=== PATIENT | female | born 1975 | race Caucasian/White ===

== ENCOUNTER 2016-07-23 12:41 | Emergency (ER) | payer MEDICAID ==
[~2016-07-23] VITALS: Ht 162.6 cm; Wt 88.0 kg
[~2016-07-23 12:41] MED LIST: APRI0.372 PO; B12-1CHW CHEW; CALCTAB11 PO; CLEO1GEL TOPICAL; DOXY100C PO; FLUO40CA PO; SACC1CAP3 PO
[2016-07-23 12:42] VITALS: BP 143/90; PULSE 85; RESP 20; TEMP 98.7; O2SAT 97
--- NOTE | 2016-07-23 12:49 | PD ---
HPI . 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 Patient tells me that she recently found she has precancerous cells and had a colposcopy approximately one month ago. She says that she usually has vaginal discharge, but noticed yesterday that she had an increase in frequency compared to her usual status. She denies any vaginal bleeding. She admits to some dysuria. She denies any high risk sexual behaviors. She no pain except for a sort throat and tells me there is something in the roof of her mouth. She has no complaints of pain. She is accompanied by her daughter. PFSH Past Medical History Cancer: No Cardiovascular Problems: No High Cholesterol: Yes Diabetes: No Diminished Hearing: No Endocrine: No Gastrointestinal Disorders: Yes (crohns diseas) GERD: Yes Genitourinary: No Hepatitis: No Hiatal Hernia: No Hypertension: Yes Immune Disorder: No Musculoskeletal: Yes (ARTHRITIS) Neurologic: No Psychiatric: No Reproductive: No Respiratory: Yes (ASTHMA) Thyroid Disease: No ?: Not LMP: 06/26/16 Tubal Ligation: Yes Past Surgical History Abdominal Surgery: Yes (LAPAROSCOPIC TUBAL LIGATION) Body Medical Devices: N/A Cardiac Surgery: No Ear Surgery: No Endocrine Surgery: No Eye Surgery: No Genitourinary Surgery: No Gynecologic Surgery: Yes (TL) Joint Replacement: No Oral Surgery: Yes (TONSILLECTOMY;FULL UPPER DENTURES) Pacemaker: No Thoracic Surgery: No Tonsillectomy: Yes Other Surgery: Yes (liver biopsy) Social History Alcohol Use: No Tobacco Use: Yes (1/2 ppd) Substance Use: No Allergies-Medications (Allergen,Severity, Reaction): Coded Allergies: Adhesives (Unverified Allergy, Intermediate, RASH, 07/23/16) Reported Meds & Prescriptions Reported Meds & Active Scripts Active Magic Mouthwash Adult Liq (Multi-Ingredient Mouthwash/Gargle) 120 Ml Susp 5 Ml SWISH-SWAL ACHS Each 5mL contains: Nystatin 200,000units, Diphenhydramine 4.25mg, Viscous Lidocaine 10mg, Rushing syrup 0.8 mL Zithromax Z-Jose (Azithromycin) 250 Mg Dspk 250 Mg PO DIRECTED 500 MG (2 tabs) day 1, then 1 tab days 2-5. Fluoxetine (Fluoxetine HCl) 40 Mg Cap 40 Cap PO DAILY Probiotic (Saccharomyces Boulardii) 250 Mg Cap 250 Mg PO BID Doxycycline Hyclate 100 Mg Cap 100 Mg PO BID If severe groin swelling/drainage/redness,please take Doxycycline 100mg BID x 1 week.If any fevers or concerns,please call Dr. Mclean Topical (Clindamycin Phosphate) 1% Gel 1 Applic TOPICAL BID Reported [id number] (Methylcobalamin) 1 Mg Chew 1 Mg CHEW DAILY Apriso (Mesalamine) 0.375 Gm Caper 4 Cap PO DAILY Calcium Magnesium & Zinc (Jhabuie-Bjiozqbgy-Qghf) 334-134-5 Mg Tab 1 Tab PO Review of Systems General / Constitutional: No: Fever Eyes: No: Visual changes HENT: No: Headaches Cardiovascular: No: Chest Pain or Discomfort Respiratory: No: Shortness of Breath Gastrointestinal: No: Abdominal Pain Genitourinary: Positive: Dysuria, Discharge Musculoskeletal: No: Pain Skin: No Rash Neurologic: No: Weakness Psychiatric: No: Depression Endocrine: No: Polydipsia Hematologic/Lymphatic: No: Easy Bruising Physical Exam Narrative GENERAL: AAO x 3, no acute distress, Well-nourished, well-developed patient. SKIN: Warm and dry. No visible rashes or bruising. HEAD: Normocephalic and atraumatic. EYES: No scleral icterus. No injection or drainage. ENT: No nasal drainage noted. Mucous membranes pink. Airway patent. aphthous ulcer is on a roof of the mouth with moderate posterior pharynx erythema NECK: Supple, trachea midline. No JVD. CARDIOVASCULAR: Regular rate and rhythm without murmurs, gallops, or rubs. RESPIRATORY: Breath sounds equal bilaterally. No accessory muscle use. No rhonchi or rales. GASTROINTESTINAL: Abdomen soft, + mild suprapubic tenderness with deep palpation PELVIC: Barby RN present, + cervical motion tenderness, + mild amount of thick white appearing discharge on cervix, no bleeding, no cervical drainage. EXTREMITIES: No cyanosis or edema. BACK: Nontender without obvious deformity. No CVA tenderness. PSYCH: AAO x 3, normal affect. Data Data Last Documented VS Vital Signs Date Time Temp Pulse Resp B/P Pulse Ox O2 Delivery O2 Flow Rate FiO2 07/23/16 13:04 77 16 130/87 97 Room Air 07/23/16 12:42 98.7 Orders Complete Blood Count With Diff (07/23/16 12:58) Basic Metabolic Panel (Bmp) (07/23/16 12:58) Gc And Chlamydia Pcr (07/23/16 12:58) Wet Prep Profile (07/23/16 12:58) Urinalysis - C+S If Indicated (07/23/16 12:58) Labs Laboratory Tests Test 07/23/16 07/23/16 13:18 13:23 White Blood Count 15.0 TH/MM3 Red Blood Count 4.66 MIL/MM3 Hemoglobin 14.3 GM/DL Hematocrit 42.2 % Mean Corpuscular Volume 90.6 FL Mean Corpuscular Hemoglobin 30.7 PG Mean Corpuscular Hemoglobin 33.9 % Concent Red Cell Distribution Width 13.2 % Platelet Count 334 TH/MM3 Mean Platelet Volume 8.0 FL Neutrophils (%) (Auto) 75.9 % Lymphocytes (%) (Auto) 16.2 % Monocytes (%) (Auto) 5.6 % Eosinophils (%) (Auto) 1.9 % Basophils (%) (Auto) 0.4 % Neutrophils # (Auto) 11.4 TH/MM3 Lymphocytes # (Auto) 2.4 TH/MM3 Monocytes # (Auto) 0.8 TH/MM3 Eosinophils # (Auto) 0.3 TH/MM3 Basophils # (Auto) 0.1 TH/MM3 CBC Comment DIFF FINAL Differential Comment Clue Cells (Wet Prep) NONE SEEN Vaginal Trichomonas (Wet Prep) NONE SEEN Vaginal Yeast (Wet Prep) NONE SEEN Sodium Level 138 MEQ/L Potassium Level 4.3 MEQ/L Chloride Level 103 MEQ/L Carbon Dioxide Level 26.0 MEQ/L Anion Gap 9 MEQ/L Blood Urea Nitrogen 6 MG/DL Creatinine 0.78 MG/DL Estimat Glomerular Filtration 82 ML/MIN Rate Random Glucose 81 MG/DL Calcium Level 9.3 MG/DL Urine Color YELLOW Urine Turbidity HAZY Urine pH 5.5 Urine Specific [place] 1.015 Urine Protein TRACE mg/dL Urine Glucose (UA) NEG mg/dL Urine Ketones NEG mg/dL Urine Occult Blood NEG Urine Nitrite NEG Urine Bilirubin NEG Urine Urobilinogen 2.0 MG/DL Urine Leukocyte Esterase MOD Urine RBC LESS THAN 1 /hpf Urine WBC 1 /hpf Urine Squamous Epithelial 5 /hpf Cells Urine Amorphous Sediment OCC Urine Bacteria OCC /hpf Microscopic Urinalysis Comment CULT NOT INDICATED MDM Medical Decision Making Medical Screen Exam Complete: Yes Emergency Medical Condition: Yes Medical Record Reviewed: Yes Differential Diagnosis Aphthous ulcer, vaginitis, bacterial vaginosis, gonorrhea, chlamydia Narrative Course 41 yr old female here with c/o increased vaginal discharge from her baseline discharge level. She was recently dx with precancerous cells and had colpo 1 mt ago. She also c/o throat pain. She has aphthous ulcers on the roof of her mouth along with some moderate posterior pharynx erythema. Vaginal discharge is present, cultures were collected and pending. 1343: No yeast or clue cells seen. No trichomoniasis. WBC elevated. Urine still pending. Laboratory Tests Test 07/23/16 07/23/16 13:18 13:23 White Blood Count 15.0 TH/MM3 Red Blood Count 4.66 MIL/MM3 Hemoglobin 14.3 GM/DL Hematocrit 42.2 % Mean Corpuscular Volume 90.6 FL Mean Corpuscular Hemoglobin 30.7 PG Mean Corpuscular Hemoglobin 33.9 % Concent Red Cell Distribution Width 13.2 % Platelet Count 334 TH/MM3 Mean Platelet Volume 8.0 FL Neutrophils (%) (Auto) 75.9 % Lymphocytes (%) (Auto) 16.2 % Monocytes (%) (Auto) 5.6 % Eosinophils (%) (Auto) 1.9 % Basophils (%) (Auto) 0.4 % Neutrophils # (Auto) 11.4 TH/MM3 Lymphocytes # (Auto) 2.4 TH/MM3 Monocytes # (Auto) 0.8 TH/MM3 Eosinophils # (Auto) 0.3 TH/MM3 Basophils # (Auto) 0.1 TH/MM3 CBC Comment DIFF FINAL Differential Comment Clue Cells (Wet Prep) NONE SEEN Vaginal Trichomonas (Wet Prep) NONE SEEN Vaginal Yeast (Wet Prep) NONE SEEN Sodium Level 138 MEQ/L Potassium Level 4.3 MEQ/L Chloride Level 103 MEQ/L Carbon Dioxide Level 26.0 MEQ/L Anion Gap 9 MEQ/L Blood Urea Nitrogen 6 MG/DL Creatinine 0.78 MG/DL Estimat Glomerular Filtration 82 ML/MIN Rate Random Glucose 81 MG/DL Calcium Level 9.3 MG/DL Urine Color YELLOW Urine Turbidity HAZY Urine pH 5.5 Urine Specific [place] 1.015 Urine Protein TRACE mg/dL Urine Glucose (UA) NEG mg/dL Urine Ketones NEG mg/dL Urine Occult Blood NEG Urine Nitrite NEG Urine Bilirubin NEG Urine Urobilinogen 2.0 MG/DL Urine Leukocyte Esterase MOD Urine RBC LESS THAN 1 /hpf Urine WBC 1 /hpf Urine Squamous Epithelial 5 /hpf Cells Urine Amorphous Sediment OCC Urine Bacteria OCC /hpf Microscopic Urinalysis Comment CULT NOT INDICATED GC PCR still pending. Discussed with patient the results would not be ready in the next few hours. Advised her that we will notify her of any abnormal results. In the meantime I've given her azithromycin to cover for pharyngitis. I've also provided Magic mouthwash for aphthous ulcers. I explained to her that she'll need to follow-up with primary care provider and see meteorological observer for this vaginal discharge. I explained her that oftentimes with precancerous cells and abnormalities of the vagina there may be some discharge present. Patient tells me that her white count is always elevated and this is normal for her, either way I will go ahead and treat her with azithromycin for pharyngitis. Patient verbalized understanding of instructions, questions were answered, and thanked me for their care. I advised them if their condition worsens, please return to the nearest emergency room for further care. Diagnosis Primary Impression: Acute pharyngitis Qualified Code: J02.9 - Acute pharyngitis, unspecified etiology Additional Impressions: Vaginal discharge Aphthous ulcer Patient Instructions: General Instructions Additional Instructions: Please return to emergency department if your symptoms return or worsen. Follow up with your primary care provider. Take medications as prescribed. Med/Other Pt SpecificInfo: Prescription(s) given Scripts Cgbsfwzs-Qbvuomrpvoipobr-Dmtiipkyo Liq (Magic Mouthwash Adult Liq)120 Ml Susp5 Ml SWISH-SWAL ACHS #120 ML Ref 0 Each 5mL contains: Nystatin 200,000units, Diphenhydramine 4.25mg, Viscous Lidocaine 10mg, Rushing syrup 0.8 mL Prov:Renard Tejada MD 07/23/16 Azithromycin (Zithromax Z-Jose)250 Mg [id number] Mg PO DIRECTED #1 DSPK 500 MG (2 tabs) day 1, then 1 tab days 2-5. Prov:Renard Tejada MD 07/23/16 Disposition: 01 DISCHARGE HOME Condition: Stable Geri Zambrano July 23, 2016 12:48
[2016-07-23 13:04] VITALS: BP 130/87; PULSE 77; RESP 16; O2SAT 97
[2016-07-23 13:29] LABS: AUTOMATED NEUTROPHIL # 11.4 TH/MM3 (1.8-7.7); BASOPHIL # 0.1 TH/MM3 (0-0.2); BASOPHIL % 0.4 % (0.0-2.0); EOSINOPHIL # 0.3 TH/MM3 (0-0.4); EOSINOPHIL % 1.9 % (0.0-4.0); HEMATOCRIT 42.2 % (35.0-46.0); HEMO FLAGS DIFF FINAL; LYMPH % 16.2 % (9.0-44.0); LYMPHOCYTE # 2.4 TH/MM3 (1.0-4.8); MEAN CELL VOLUME 90.6 FL (80.0-100.0); MEAN CORPUSCULAR HEMOGLOBIN 30.7 PG (27.0-34.0); MEAN CORPUSCULAR HGB CONC 33.9 % (32.0-36.0); MONO % 5.6 % (0.0-8.0); NEUT % 75.9 % (16.0-70.0); PLATELET COUNT 334 TH/MM3 (150-450); RED BLOOD COUNT 4.66 MIL/MM3 (4.00-5.30); RED CELL DISTRIBUTION WIDTH 13.2 % (11.6-17.2)
[2016-07-23 13:46] LABS: BACTERIA, URINE OCC /hpf; BLOOD, URINE NEG (NEG); GLUCOSE,URINE NEG (NEG); KETONE, URINE NEG (NEG); NITRITE,URINE NEG (NEG); PH, URINE 5.5 (5.0-8.5); SQUAMOUS EPITHELIAL CELL URINE 5 /hpf (0-5); URINE COLOR YELLOW (YELLW/STRAW)
[2016-07-23 13:48] LABS: COMMENT (UR) CULT NOT INDICATED; CULTURE IF INDICATED CULT NOT INDICATED
[2016-07-23 13:51] LABS: POTASSIUM 4.3 MEQ/L (3.5-5.1)
[2016-07-23] MEDS ORDERED: MAGICADU2 SWISH-SWAL (14:00)
[2016-07-23] MEDS ORDERED: ZITHTAB PO (14:00)
[2016-07-23 15:06] LABS: CHLAMYDIA PCR NOT DETECTED (NOT DETECT); NEISSERIA PCR NOT DETECTED (NOT DETECT)
== END 2016-07-23 14:39 | disposition home or self-care (01) ==
LOC: NEPD 12:41
DX: J02.9 Acute pharyngitis, unspecified (principal); N89.8 Other specified noninflammatory disorders of vagina; K12.0 Recurrent oral aphthae; F17.200 Nicotine dependence, unspecified, uncomplicated
CPT/HCPCS: 80048; 81001; 85025; 87210; 87491; 87591; 99283

== ENCOUNTER 2016-08-05 19:26 | Observation (INO) | payer MEDICAID, OTHER ==
[~2016-08-05] VITALS: Ht 162.6 cm; Wt 88.0 kg
[~2016-08-05 19:26] MED LIST changes: +MAGICADU2 SWISH-SWAL; +ZITHTAB PO
[2016-08-05 19:28] VITALS: BP 126/83; PULSE 84; RESP 16; TEMP 98.5; O2SAT 98
[2016-08-05] MEDS ORDERED: PANT20TA2 PO (19:46)
[2016-08-05] MEDS ORDERED: FERR200T PO (19:46)
[2016-08-05] MEDS ORDERED: SODIUM CHLORID 0.9% 500 ML INJ 500 ML IV ONE (20:00)
[2016-08-05] MEDS ORDERED: SODIUM CHLORIDE 0.9% FLUSH 10 ML FLUSH IVF PRN (20:00)
[2016-08-05] MEDS ORDERED: ASPIRIN 81 MG CHEW TAB PO ONE (20:00)
[2016-08-05 20:04] VITALS: BP 114/69; O2SAT 98
--- NOTE | 2016-08-05 20:24 | PD ---
HPI Chief Complaint: Chest Pain Time Seen by Provider: 19:45 Travel History International Travel<30 days: No Contact w/Intl Traveler<30days: No Traveled to known affect area: No History of Present Illness HPI 41-year-old female with recent diagnosis of cervical cancer presents to the ED for evaluation of "a couple weeks" history of intermittent chest pain. Onset at rest. Described as a tightness. Gradual onset, lasting up to 30 minutes before resolving spontaneously. Patient endorses accompanying shortness of breath. She states the pain moved from the upper left chest to the lower left chest since onset. She fevers, chills, denies radiation of the pain, palpitations, diaphoresis, abdominal pain, nausea, vomiting. Endorses urinary urgency. Denies back pain. PFSH Past Medical History Depression: Yes Cancer: Yes (CERVICAL CANCER) Cardiovascular Problems: No High Cholesterol: Yes Diabetes: No Diminished Hearing: No Endocrine: No Gastrointestinal Disorders: Yes (CHROHNS, GALLBLADDER PROBLEMS;GERD) GERD: Yes Genitourinary: No Hepatitis: No Hiatal Hernia: No Hypertension: Yes Immune Disorder: No Medical other: Yes (FATTY LIVER) Musculoskeletal: Yes (ARTHRITIS) Neurologic: No Psychiatric: No Reproductive: No Respiratory: Yes (ASTHMA) Thyroid Disease: No ?: Not Tubal Ligation: Yes Past Surgical History Abdominal Surgery: Yes (LAPAROSCOPIC TUBAL LIGATION) Body Medical Devices: N/A Cardiac Surgery: No Ear Surgery: No Endocrine Surgery: No Eye Surgery: No Genitourinary Surgery: No Gynecologic Surgery: Yes (TL) Joint Replacement: No Neurologic Surgery: No Oral Surgery: Yes (TONSILLECTOMY;FULL UPPER DENTURES) Pacemaker: No Thoracic Surgery: No Tonsillectomy: Yes Other Surgery: Yes (liver biopsy / CERVIX BIOPSY) Social History Alcohol Use: No Tobacco Use: Yes (1/2 ppd) Substance Use: No Allergies-Medications (Allergen,Severity, Reaction): Coded Allergies: Adhesives (Unverified Allergy, Intermediate, RASH, 08/05/16) Reported Meds & Prescriptions Reported Meds & Active Scripts Active Fluoxetine (Fluoxetine HCl) 40 Mg Cap 40 Cap PO DAILY Reported Feosol (Ferrous Sulfate) Unknown Strength Tab Unknown Dose PO BIDPC Pantoprazole (Pantoprazole Sodium) 20 Mg Tab 20 Mg PO DAILY Apriso (Mesalamine) 0.375 Gm Caper 4 Cap PO DAILY Review of Systems Except as stated in HPI: all other systems reviewed are Neg Physical Exam Narrative GENERAL: Well-nourished, well-developed obese white female in no acute distress.. SKIN: Focused skin assessment warm/dry. HEAD: Normocephalic. EYES: No scleral icterus. No injection or drainage. NECK: Supple, trachea midline. No JVD or lymphadenopathy. CARDIOVASCULAR: Regular rate and rhythm without murmurs, gallops, or rubs. CHEST: No deformity or crepitus. Slight tenderness to palpation in the Left anterolateral rib cage. No retractions or use of accessory muscles. RESPIRATORY: Breath sounds clear and equal bilaterally. No accessory muscle use. GASTROINTESTINAL: Abdomen soft, non-tender, nondistended. Active bowel sounds. MUSCULOSKELETAL: No cyanosis, or edema. BACK: Nontender without obvious deformity. No CVA tenderness. Data Data Last Documented VS Vital Signs Date Time Temp Pulse Resp B/P Pulse Ox O2 Delivery O2 Flow Rate FiO2 08/05/16 20:04 114/69 08/05/16 20:04 98 Room Air 08/05/16 19:28 98.5 84 16 Orders Electrocardiogram (08/05/16 19:47) Basic Metabolic Panel (Bmp) (08/05/16 19:47) Ckmb (Isoenzyme) Profile (08/05/16 19:47) Complete Blood Count With Diff (08/05/16 19:47) Magnesium (Mg) (08/05/16 19:47) Prothrombin Time / Inr (Pt) (08/05/16 19:47) Act Partial Throm Time (Ptt) (08/05/16 19:47) Troponin I (08/05/16 19:47) Chest, Single Ap (08/05/16 19:47) Ecg Monitoring (08/05/16 19:47) Bilateral Bp Monitoring (08/05/16 19:47) Iv Access Insert/Monitor (08/05/16 19:47) Oximetry (08/05/16 19:47) Aspirin Chew (Aspirin Chew) (08/05/16 20:00) Sodium Chloride 0.9% Flush (Ns Flush) (08/05/16 20:00) Sodium Chlorid 0.9% 500 Ml Inj (Ns 500 M (08/05/16 20:00) Ed Urine Pregnancytest Poc (08/05/16 19:47) Lipase (08/05/16 19:47) Urinalysis - C+S If Indicated (08/05/16 21:29) Activity Bed Rest With Brp (08/05/16 21:51) Vital Signs (Adult) Q4H (08/05/16 21:51) Cardiac Rhythm .As Directed (08/05/16 21:51) Notify Dr: Other .PRN (08/05/16 21:51) Notify Dr. Parameters (08/05/16:51) Ckmb (Isoenzyme) Profile (08/05/16 21:51) Ckmb (Isoenzyme) Profile (08/06/16 00:51) Troponin I (08/05/16 21:51) Troponin I (08/06/16 00:51) Electrocardiogram (08/05/16 21:51) Electrocardiogram (08/06/16 00:51) ^ Obtain (08/05/16 21:51) Sodium Chloride 0.9% Flush (Ns Flush) (08/05/16 22:00) Sodium Chloride 0.9% Flush (Ns Flush) (08/06/16 09:00) Research Hydraulic Engineer / Telemetry [id number] (08/05/16 21:51) Admit Order (Ed Use Only) (08/05/16 21:51) Labs Laboratory Tests Test 08/05/16 08/05/16 20:30 21:39 White Blood Count 13.3 TH/MM3 Red Blood Count 4.26 MIL/MM3 Hemoglobin 12.8 GM/DL Hematocrit 39.2 % Mean Corpuscular Volume 92.0 FL Mean Corpuscular Hemoglobin 30.2 PG Mean Corpuscular Hemoglobin 32.8 % Concent Red Cell Distribution Width 13.3 % Platelet Count 328 TH/MM3 Mean Platelet Volume 8.4 FL Neutrophils (%) (Auto) 62.4 % Lymphocytes (%) (Auto) 29.3 % Monocytes (%) (Auto) 5.9 % Eosinophils (%) (Auto) 2.1 % Basophils (%) (Auto) 0.3 % Neutrophils # (Auto) 8.3 TH/MM3 Lymphocytes # (Auto) 3.9 TH/MM3 Monocytes # (Auto) 0.8 TH/MM3 Eosinophils # (Auto) 0.3 TH/MM3 Basophils # (Auto) 0.0 TH/MM3 CBC Comment DIFF FINAL Differential Comment Prothrombin Time 9.5 SEC Prothromb Time International 0.9 RATIO Ratio Activated Partial 27.1 SEC Thromboplast Time Sodium Level 141 MEQ/L Potassium Level 3.7 MEQ/L Chloride Level 104 MEQ/L Carbon Dioxide Level 25.9 MEQ/L Anion Gap 11 MEQ/L Blood Urea Nitrogen 5 MG/DL Creatinine 0.68 MG/DL Estimat Glomerular Filtration 96 ML/MIN Rate Random Glucose 73 MG/DL Calcium Level 8.8 MG/DL Magnesium Level 2.2 MG/DL Total Creatine Kinase 94 U/L Troponin I LESS THAN 0.02 NG/ML Lipase 122 U/L Urine Color YELLOW Urine Turbidity HAZY Urine pH 6.0 Urine Specific [place] 1.018 Urine Protein TRACE mg/dL Urine Glucose (UA) NEG mg/dL Urine Ketones NEG mg/dL Urine Occult Blood NEG Urine Nitrite NEG Urine Bilirubin NEG Urine Urobilinogen 4.0 MG/DL Urine Leukocyte Esterase TRACE Urine RBC 1 /hpf Urine WBC 4 /hpf Urine Squamous Epithelial 6 /hpf Cells Urine Mucus FEW /lpf Microscopic Urinalysis Comment CULT NOT INDICATED MDM Medical Decision Making Medical Screen Exam Complete: Yes Emergency Medical Condition: Yes Differential Diagnosis chest pain versus costochondritis versus ACS versus cholelithiasis versus pancreatitis versus UTI versus other Narrative Course 41-year-old female presents to the ED for evaluation of "a couple weeks" history of intermittent chest pain. Onset at rest. Described as a tightness. Gradual onset, lasting up to 30 minutes before resolving spontaneously. Patient endorses accompanying shortness of breath. She states the pain moved from the upper left chest to the lower left chest since onset. She fevers, chills, denies radiation of the pain, palpitations, diaphoresis, abdominal pain , nausea, vomiting. Endorses urinary urgency. Denies back pain. Patient afebrile, heart rate 84, BP 126/83 on presentation. Physical exam revealed a nontoxic-appearing white female in no acute distress. There is point tenderness over the anterolateral left chest but the physical exam is otherwise unremarkable. She was administered aspirin by mouth. CBC: WBC 13.3. Hemoglobin 12.8 Coags: INR 0.9. BMP: Unremarkable. Lipase: 112. UA: No culture indicated. Cardiac enzymes negative 1. CXR: Lungs clear per radiology read. EKG rate 76, sinus rhythm. MA interval 158, QRS 80, QTC 418 ms[address] Normal axis. No ST-T changes. Reviewed by I discussed the results of the workup with the patient. I recommended observation in the chest pain center for further evaluation. Patient is agreeable to this plan. Please see [facility] notes for disposition. Va Cid Aug 05, 2016 20:24
--- NOTE | 2016-08-05 20:58 | RADRPT ---
EXAM DATE/TIME: 08/05/2016 20:14 [place] COMPARISON: CHEST SINGLE AP, June 22, 2015, 16:48. INDICATIONS : Chest pain. MEDICAL HISTORY : None. SURGICAL HISTORY : None. ENCOUNTER: Initial ACUITY: 1 day PAIN SCORE: 8/10 LOCATION: Bilateral chest FINDINGS: A single view of the chest demonstrates the lungs to be symmetrically aerated without evidence of mas s, infiltrate or effusion. The cardiomediastinal contours are unremarkable. Osseous structures are intact. CONCLUSION: The lungs are clear. eBnjamin Jamison MD on August 05, 2016 at 20:56 Board Certified Radiologist. This report was verified electronically.
[2016-08-05 20:59] LABS: AUTOMATED NEUTROPHIL # 8.3 TH/MM3 (1.8-7.7); BASOPHIL % 0.3 % (0.0-2.0); EOSINOPHIL # 0.3 TH/MM3 (0-0.4); EOSINOPHIL % 2.1 % (0.0-4.0); HEMATOCRIT 39.2 % (35.0-46.0); HEMO FLAGS DIFF FINAL; LYMPH % 29.3 % (9.0-44.0); LYMPHOCYTE # 3.9 TH/MM3 (1.0-4.8); MEAN CORPUSCULAR HEMOGLOBIN 30.2 PG (27.0-34.0); MEAN CORPUSCULAR HGB CONC 32.8 % (32.0-36.0); MONO % 5.9 % (0.0-8.0); NEUT % 62.4 % (16.0-70.0); PLATELET COUNT 328 TH/MM3 (150-450); RED BLOOD COUNT 4.26 MIL/MM3 (4.00-5.30); RED CELL DISTRIBUTION WIDTH 13.3 % (11.6-17.2); WHITE BLOOD COUNT 13.3 TH/MM3 (4.0-11.0)
[2016-08-05 21:21] LABS: APTT (PATIENT) 27.1 SEC (24.3-30.1); INTERNATIONAL NORMALIZED RATIO 0.9 RATIO; PROTHROMBIN TIME - PATIENT 9.5 SEC (9.8-11.6)
[2016-08-05 21:30] LABS: ANION GAP 11 MEQ/L (5-15); BICARBONATE 25.9 MEQ/L (21.0-32.0); BLOOD UREA NITROGEN 5 MG/DL (7-18); CHLORIDE 104 MEQ/L (98-107); GLOMERULAR FILTRATION RATE 96 ML/MIN (>89); MAGNESIUM 2.2 MG/DL (1.5-2.5); POTASSIUM 3.7 MEQ/L (3.5-5.1); SODIUM (NA) 141 MEQ/L (136-145)
[2016-08-05 21:39] LABS: CREATINE KINASE 94 U/L (26-192)
[2016-08-05 21:54] LABS: BLOOD, URINE NEG (NEG); COMMENT (UR) CULT NOT INDICATED; CULTURE IF INDICATED CULT NOT INDICATED; GLUCOSE,URINE NEG (NEG); KETONE, URINE NEG (NEG); MUCUS URINE FEW /lpf (OCC); NITRITE,URINE NEG (NEG); SQUAMOUS EPITHELIAL CELL URINE 6 /hpf (0-5); URINE COLOR YELLOW (YELLW/STRAW)
[2016-08-05] MEDS ORDERED: SODIUM CHLORIDE 0.9% FLUSH 10 ML FLUSH IV FLUSH PRN (22:00)
[2016-08-05 22:51] VITALS: BP 129/74; PULSE 75; RESP 18; TEMP 97.8; O2SAT 98
[2016-08-05 23:37] LABS: CREATINE KINASE 85 U/L (26-192)
[2016-08-06] VITALS (7 sets, daily range): BP systolic 71–123; BP diastolic 41–69; PULSE 53–70; RESP 16–18; TEMP 97.6–97.8; O2SAT 95–96
[2016-08-06 03:23] LABS: CREATINE KINASE 78 U/L (26-192)
[2016-08-06] MEDS ORDERED: SODIUM CHLORIDE 0.9% FLUSH 10 ML FLUSH IV FLUSH SCH (09:00)
--- NOTE | 2016-08-06 11:13 | HHI.HP ---
HPI Primary Care Physician Derek Batista MD Chief Complaint Chest pain History of Present Illness This is a 41-year-old female that presents to ED to evaluate for a discomfort in her chest. She tried a sharp chest pain has been intermittent for couple days. Last 1 or 2 minutes at a time. It hurt to take in a deep breath yesterday but is no longer there today. Denies recent illness. Denies fevers or chills. Occasionally short of breath. No nausea or diaphoresis. Denies . Review of Systems General: Patient denies fevers, chills recent, and recent travel HEENT: Patient denies headache, sore throat, difficulty swallowing. Cardiovascular: Has the chest discomfort as mentioned above. Denies sensation of heart beating rapidly or irregularly. No syncope. Denies diaphoresis. Respiratory: Occasional shortness of breath. Denies inspirational chest discomfort. Denies coughing wheezing or hemoptysis. GI: Patient denies nausea, vomiting, diarrhea, abdominal pain, bloody stools. Musculoskeletal: Patient denies joint pain or edema. Denies calf pain or edema. Neurovascular: Patient denies numbness, tingling, weakness in extremities. Denies headache. Endocrine: Denies polyuria and polydipsia. Hematologic: Denies easy bruising. Skin: Denies rash or itching. Past Family Social History Allergies: Coded Allergies: Adhesives (Unverified Allergy, Intermediate, RASH, 08/05/16) Past Medical History Iron deficient anemia, Crohn's disease, GERD, and tobacco abuse. Denies diabetes, hyperlipidemia, hypertension, and known CAD. Past Surgical History Tubal ligation, tonsillectomy. Reported Medications Reported Meds & Active Scripts Active Fluoxetine (Fluoxetine HCl) 40 Mg Cap 40 Cap PO DAILY Reported Feosol (Ferrous Sulfate) Unknown Strength Tab Unknown Dose PO BIDPC Pantoprazole (Pantoprazole Sodium) 20 Mg Tab 20 Mg PO DAILY Apriso (Mesalamine) 0.375 Gm Caper 4 Cap PO DAILY Active Ordered Medications Current Medications Medications (Trade) Dose Ordered Sig/Elizabeth Route Start Time Stop Time Status Last Admin (NS Flush) 2 ml UNSCH PRN IVF 08/05/16 20:00 (NS Flush) 2 ml UNSCH PRN IV FLUSH 08/05/16 22:00 (NS Flush) 2 ml BID IV FLUSH 08/06/16 09:00 08/06/16 08:32 Family History She states that her mother have CAD on center in her late 40s. She believes her father has some heart issues but is not really aware of specifics. Social History Patient has been smoking about a half pack of cigarettes daily for a few months but prior that she smoked a pack of cigarettes daily for more than 25 years. Denies alcohol or illicit drug use. Physical Exam Vital Signs Vital Signs Date Time Temp Pulse Resp B/P Pulse Ox O2 Delivery O2 Flow Rate FiO2 08/06/16 08:00 56 08/06/16 07:51 111/69 08/06/16 07:41 97.6 61 16 71/41 96 08/06/16 04:13 60 08/06/16 03:14 97.8 53 16 123/67 95 08/06/16 00:00 70 08/05/16 22:51 97.8 75 18 129/74 98 08/05/16 20:04 114/69 08/05/16 20:04 98 Room Air 08/05/16 19:28 98.5 84 16 126/83 98 Nasal Cannula Physical Exam GENERAL: This is a well-nourished, well-developed patient, in no apparent distress. Patient speaks in clear complete sentences. Patient is pleasant. HEENT: Head is atraumatic and normocephalic. Neck is supple without lymphadenopathy and trachea is midline. No JVD or carotid bruits. CARDIOVASCULAR: Regular rate and rhythm without murmurs, gallops, or rubs. RESPIRATORY: Clear to auscultation. Breath sounds equal bilaterally. No wheezes , rales, or rhonchi. Chest wall is tender reproducing the discomfort she has been having.. No use of accessory muscles. GASTROINTESTINAL: Abdomen is nontender, nondistended. Abdomen soft. No obvious pulsatile mass or bruit. No CVA tenderness. Strong femoral pulses bilaterally. Normal bowel sounds in all quadrants. MUSCULOSKELETAL: Patient is moving upper and lower extremities freely. No calf tenderness or edema, no Homans sign. Strong pulses in upper and lower extremities. NEUROLOGICAL: Patient is alert and oriented. Cranial nerves 2-12 are grossly intact. No focal deficits and speech is clear. SKIN: No rash and turgor is normal. Laboratory Laboratory Tests Test 08/05/16 08/05/16 08/05/16 08/06/16 20:30 21:39 22:45 02:30 White Blood Count 13.3 Red Blood Count 4.26 Hemoglobin 12.8 Hematocrit 39.2 Mean Corpuscular Volume 92.0 Mean Corpuscular Hemoglobin 30.2 Mean Corpuscular Hemoglobin 32.8 Concent Red Cell Distribution Width 13.3 Platelet Count 328 Mean Platelet Volume 8.4 Neutrophils (%) (Auto) 62.4 Lymphocytes (%) (Auto) 29.3 Monocytes (%) (Auto) 5.9 Eosinophils (%) (Auto) 2.1 Basophils (%) (Auto) 0.3 Neutrophils # (Auto) 8.3 Lymphocytes # (Auto) 3.9 Monocytes # (Auto) 0.8 Eosinophils # (Auto) 0.3 Basophils # (Auto) 0.0 CBC Comment DIFF FINAL Differential Comment Prothrombin Time 9.5 Prothromb Time International 0.9 Ratio Activated Partial 27.1 Thromboplast Time Sodium Level 141 Potassium Level 3.7 Chloride Level 104 Carbon Dioxide Level 25.9 Anion Gap 11 Blood Urea Nitrogen 5 Creatinine 0.68 Estimat Glomerular Filtration 96 Rate Random Glucose 73 Calcium Level 8.8 Magnesium Level 2.2 Total Creatine Kinase 94 85 78 Troponin I LESS THAN 0.02 LESS THAN 0.02 LESS THAN 0.02 Lipase 122 Urine Color YELLOW Urine Turbidity HAZY Urine pH 6.0 Urine Specific [place] 1.018 Urine Protein TRACE Urine Glucose (UA) NEG Urine Ketones NEG Urine Occult Blood NEG Urine Nitrite NEG Urine Bilirubin NEG Urine Urobilinogen 4.0 Urine Leukocyte Esterase TRACE Urine RBC 1 Urine WBC 4 Urine Squamous Epithelial 6 Cells Urine Mucus FEW Microscopic Urinalysis Comment CULT NOT INDICATED Test 08/06/16 09:06 D-Dimer Quantitative (PE/DVT) 0.39 Result Diagram: 08/05/16202908/05/162029 Imaging Last 48 hours Impressions Chest X-Ray 08/05/161946 Signed Impressions: Service Date/Time: Friday, August 05, 2016 20:14 - CONCLUSION: The lungs are clear. Benjamin Jamison MD Course EKGs have sinus bradycardia to sinus arrhythmia without significant ST segment depressions or elevations. Assessment and Plan Assessment and Plan * Chest pain: Patient has had serial cardiac enzymes and EKGs for ruling out purposes. She has been seen by Dr. Nathaniel Colbert of cardiology in the chest pain center. She will undergo a Lexiscan. She will be discharged home with instructions to follow-up with primary care physician if her Lexiscan was nonischemic. * GERD: Continue her medication. * Tobacco abuse: Patient has been counseled on importance of smoking cessation. Patient is stable at this time. She is agreeable to this plan. Zaheer Calderon Aug 06, 2016 11:13
[2016-08-06] MEDS ORDERED: REGADENOSON INJ 0.4 MG/5 ML SYR ONE (12:12)
--- NOTE | 2016-08-06 14:27 | RADRPT ---
EXAM DATE/TIME: 08/06/2016 11:41 CORRECTION Corrected on: August 14, 2016; Added pain scale [place] COMPARISON: No previous studies available for comparison. INDICATIONS : Angina. DOSE: 25.8 mCi Tc99m Myoview at stress. 8.2 mCi Tc99m Myoview at rest. 0.4 mg Lexiscan STRESS SYMPTOMS: Lightheaded. EJECTION FRACTION: 65% MEDICAL HISTORY : Hypertension. Hypercholesterolemia. SURGICAL HISTORY : Tubal ligation ENCOUNTER: Initial ACUITY: 3 weeks PAIN SCALE: 0/10 LOCATION: chest TECHNIQUE: The patient underwent pharmacologic stress with infusion of prescribed dose. Continuous ECG tracing was monitored during stress. Gated SPECT imaging was performed after stress and conventional SPECT i maging was performed at rest. The examination was performed on a SPECT/CT scanner, both attenuation and non-corrected datasets were reviewed. FINDINGS: DISTRIBUTION: The maximum perfused segment at stress is in the inferior wall. PERFUSION STUDY: The pattern of perfusion at stress is within normal limits. GATED STUDY: There is intact wall motion and thickening without hypokinetic or dyskinetic segments. CONCLUSION: 1. No reversible perfusion defect to suggest stress-induced myocardial ischemia identified. RISK CATEGORY: Low (<1% Annual Mortality Rate) Akhil Diehl MD on August 06, 2016 at 14:25 Board Certified Radiologist. This report was verified electronically.
--- NOTE | 2016-08-06 14:50 | HHI.DCPOC ---
Discharge Care Plan Diagnosis: (1) Chest pain (2) Tobacco abuse Goals to Promote Your Health * To prevent worsening of your condition and complications * To maintain your health at the optimal level Directions to Meet Your Goals Take your medications as prescribed Follow your dietary instruction Follow activity as directed Keep your appointments as scheduled Take your immunizations and boosters as scheduled If your symptoms worsen call your PCP, if no PCP go to Urgent Care Center or Emergency Room Smoking is Dangerous to Your Health. Avoid second hand smoke Call the 24-hour hour crisis hotline for domestic abuse at Zaheer Calderon Aug 06, 2016 14:50
--- NOTE | 2016-08-06 15:32 | EKG ---
Date Performed: 08/06/2016 Time Performed: 02:50:43 PTAGE: 41 years EKG: SINUS BRADYCARDIA WITH SINUS ARRHYTHMIA BORDERLINE ECG PREVIOUS TRACING : 08/05/2016 23.36 Since previous tracing, no significant change noted DOCTOR: Nathaniel Colbert Interpretating Date/Time 08/06/2016 15:31:03
--- NOTE | 2016-08-06 15:33 | EKG ---
Date Performed: 08/05/2016 Time Performed: 23:36:52 PTAGE: 41 years EKG: Sinus rhythm NORMAL ECG PREVIOUS TRACING : 08/05/2016 22.08 Since previous tracing, no significant change noted DOCTOR: Nathaniel Colbert Interpretating Date/Time 08/06/2016 15:31:59
--- NOTE | 2016-08-06 15:34 | EKG ---
Date Performed: 08/05/2016 Time Performed: 22:08:59 PTAGE: 41 years EKG: Sinus rhythm WITH SINUS ARRHYTHMIA NORMAL ECG PREVIOUS TRACING : 08/05/2016 19.40 Since previous tracing, no significant change noted DOCTOR: Nathaniel Colbert Interpretating Date/Time 08/06/2016 15:32:56
--- NOTE | 2016-08-06 15:35 | EKG ---
Date Performed: 08/05/2016 Time Performed: 19:40:17 PTAGE: 41 years EKG: Sinus rhythm NORMAL ECG PREVIOUS TRACING : 06/22/2015 16.19 Since previous tracing, no significant change noted DOCTOR: Nathaniel Colbert Interpretating Date/Time 08/06/2016 15:33:14
--- NOTE | 2016-08-06 15:36 | TR ---
Date Performed: 08/06/2016 Time Performed: 12:21:22 DOCTOR: Nathaniel Colbert DRUG LIST: CLINICAL HISTORY: REASON FOR TEST: REASON FOR ENDING: OBSERVATION: CONCLUSION: Lexiscan stress test was performed under standard four minute protocol. Radionuclid e was injected one minute prior to ending the test. No electrocardiographic abormalities were present to suggest ischemia. Nuclear imaging and interpretation are pending. COMMENTS:
== END 2016-08-06 15:37 | disposition home or self-care (01) ==
LOC: NEPE 19:26 → NEDA 21:54 → NEPHCDU 22:48
PROVIDERS: ADMIT Family Medicine; ATTEND Family Medicine
DX: R07.89 Other chest pain (principal); R06.02 Shortness of breath; R00.1 Bradycardia, unspecified; F32.9 Major depressive disorder, single episode, unspecified; C53.9 Malignant neoplasm of cervix uteri, unspecified; I10 Essential (primary) hypertension; K21.9 Gastro-esophageal reflux disease without esophagitis; J45.909 Unspecified asthma, uncomplicated; F17.210 Nicotine dependence, cigarettes, uncomplicated; K50.90 Crohn's disease, unspecified, without complications; E78.00 Pure hypercholesterolemia, unspecified; M19.90 Unspecified osteoarthritis, unspecified site
CPT/HCPCS: 71010; 78452; 80048; 81001; 82550; 83690; 83735; 84484; 84703; 85025; 85379; 85610; 85730; 93005; 93017; 96360; 99285; A9502; G0378; J2785; J7040

== ENCOUNTER → 2016-08-23 | Outpatient (CLI) | payer OTHER ==
[~2016-08-23] MED LIST changes: -B12-1CHW CHEW; -CALCTAB11 PO; -CLEO1GEL TOPICAL; -DOXY100C PO; +FERR200T PO; -MAGICADU2 SWISH-SWAL; +PANT20TA2 PO; -SACC1CAP3 PO; -ZITHTAB PO
[2016-08-23 10:49] LABS: AUTOMATED NEUTROPHIL # 10.5 TH/MM3 (1.8-7.7); BASOPHIL % 0.3 % (0.0-2.0); EOSINOPHIL # 0.2 TH/MM3 (0-0.4); EOSINOPHIL % 1.7 % (0.0-4.0); HEMATOCRIT 41.3 % (35.0-46.0); HEMO FLAGS DIFF FINAL; LYMPH % 15.8 % (9.0-44.0); LYMPHOCYTE # 2.2 TH/MM3 (1.0-4.8); MEAN CELL VOLUME 91.7 FL (80.0-100.0); MEAN CORPUSCULAR HEMOGLOBIN 30.1 PG (27.0-34.0); MEAN CORPUSCULAR HGB CONC 32.8 % (32.0-36.0); MONO % 5.7 % (0.0-8.0); NEUT % 76.5 % (16.0-70.0); PLATELET COUNT 313 TH/MM3 (150-450); RED CELL DISTRIBUTION WIDTH 13.5 % (11.6-17.2); WHITE BLOOD COUNT 13.7 TH/MM3 (4.0-11.0)
[2016-08-23 10:58] LABS: APTT (PATIENT) 28.5 SEC (24.3-30.1); INTERNATIONAL NORMALIZED RATIO 0.9 RATIO; PROTHROMBIN TIME - PATIENT 10.2 SEC (9.8-11.6)
[2016-08-23 11:18] LABS: ANION GAP 5 MEQ/L (5-15); AST (GOT) 19 U/L (15-37); BICARBONATE 28.8 MEQ/L (21.0-32.0); BLOOD UREA NITROGEN 6 MG/DL (7-18); CHLORIDE 103 MEQ/L (98-107); GLOMERULAR FILTRATION RATE 85 ML/MIN (>89); GLUCOSE,FASTING 92 MG/DL (74-99); POTASSIUM 3.9 MEQ/L (3.5-5.1); SODIUM (NA) 137 MEQ/L (136-145)
[2016-08-23 11:19] LABS: ALT (GPT) 32 U/L (10-53)
[2016-08-23 11:23] LABS: ALKALINE PHOSPHATASE 36 U/L (45-117); TOTAL BILIRUBIN ADULT 0.5 MG/DL (0.2-1.0)
[2016-08-23 11:26] LABS: BHCG SCREEN QUALITATIVE LESS THAN 1 MIU/ML (0-5)
== END ==
LOC: CPRE 10:02
PROVIDERS: ATTEND Obstetrics & Gynecology Gynecologic Oncology
DX: Z01.812 Encounter for preprocedural laboratory examination (principal); N87.1 Moderate cervical dysplasia
CPT/HCPCS: 36415; 80053; 84703; 85025; 85610; 85730

== ENCOUNTER → 2016-09-06 | Day surgery (SDC) | payer MEDICAID, OTHER ==
[~2016-09-06] VITALS: Ht 165.1 cm; Wt 87.0 kg
[~2016-09-06] MED LIST changes: +CHLORHEXIDINE GLUCONATE 2 % 1 PACK (2 CLOTHS) TOPICAL PRN; +DEXAMETHASONE SOD PHOS 4 MG/ML VIAL ONE; +DO NOT ADM ANY ANTICOAGULANT DRUGS PRN; +ESTROGENS CONJUGATED VAG CREA 15 APPL/30 GM TUBE ONE; +FAMOTIDINE 20 MG/2 ML VIAL ONE; +FERRIC SUBSULFATE 8 ML TOP SOLN TOPICAL ONE; +INSULIN HUMAN REGULAR 1,000 UNITS/10 ML VIAL SQ PRN; +KETOROLAC TROMETHAMINE 30 MG/ML (IVP) VIAL ONE; +KETOROLAC TROMETHAMINE 60 MG/2 ML (IM) VIAL IM ONE; +LACTATED RINGER'S 1000 ML INJ 1,000 ML IV ONE; +LACTATED RINGER'S 1000 ML IV PRN; +LIDOCAINE 1%/EPINEPHrine 1:100,000 SOLN 20 ML VIAL ONE; +METOPROLOL TARTRATE 25 MG TAB PO PRN; +MIDAZOLAM HCL 2 MG/2 ML VIAL ONE; +ONDANSETRON HCL 4 MG/2 ML VIAL IV PUSH ONE; +POVIDONE IODINE 5% (ANTISEPSIS KIT) 4 APPLICATIONS EACH NARE PRN; +PROPOFOL 200 MG/20 ML AMP IV ONE; +SODIUM CHLORID 0.9% 500 ML IV PRN; +VASOPRESSIN INJ 20 UNITS/ML VIAL ONE; +ceFAZolin INJ 1,000 MG VIAL IV ONE
[2016-09-06 05:58] VITALS: BP 105/69; PULSE 68; RESP 18; TEMP 97.4; O2SAT 96
[2016-09-06 09:38] VITALS: BP 118/80; PULSE 68; RESP 16; TEMP 97.1; O2SAT 99
--- NOTE | 2016-09-06 14:34 | MP ---
cc: HELENA SPENCE MD, KELLY L. MD DATE OF SURGERY: 09/06/2016 PREOPERATIVE DIAGNOSIS Cervical carcinoma in situ with endocervical extension, possible microinvasion. 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 PROCEDURE Examination under anesthesia, cold knife conization of the cervix, fractional dilation and curettage (endocervical and endometrial curettings). SURGEON Anna Callahan MD [employer] RECRUITER [place] optometric assistant. ANESTHESIA Laryngeal mask anesthesia. ESTIMATED BLOOD LOSS Less than 20 ccs. HISTORY 41-year-old female with abnormal Pap smear lead to colposcopy. Biopsy showed high-grade dysplasia/carcinoma in situ with extension into the endocervical glands with area suspicious for microinvasion. She was counseled regarding these findings and options and presents now for further surgical evaluation and management. FINDINGS On exam under anesthesia there is no appreciably enlarged inguinal lymph nodes. External genitalia without mass or lesion. The cervix is prominent but smooth, symmetrical with no overtly grossly visible disease. The cervix and uterus are mobile. There is no overt parametrial nodularity or thickening. No retraction or limitation to motion. The uterus is palpably approximately 10 cm. No obvious pelvic mass. The uterine cavity sounds to 9 cm. The uterus is slightly anteverted. The tissue obtained from endocervical and endometrial curettings is small to moderate. No obvious neoplastic change in the curettings. PROCEDURE The patient was taken to the operating room and placed in dorsal lithotomy position, after laryngeal mask anesthesia was administered, time-out was undertaken. The patient was [facility] sight recognition [facility] and the proposed procedure was reviewed and confirmed. She was carefully positioned in lithotomy position. In-and-out catheterization of the bladder. Exam under anesthesia was performed with findings as described above. Prepped, draped in sterile fashion. Dilute acetic acid applied to the cervix and upper vagina. Inspection showed subtle acetowhite changes in the transformation zone. No other neoplastic or vascular changes on the ectocervix. 0-Vicryl sutures were placed at the 3 o'clock and 9 o'clock position in [id number] fashion for hemostasis and countertraction. Lidocaine epinephrine was injected circumferentially into the cervix. The axis of the endocervical canal was identified using a small probe. Scalpel was used to perform a conization circumferentially around the ectocervix angling in to get high generous portion of the endocervical canal. The specimen was removed as cervix conization. Endocervical curetting was performed in multiple passes circumferentially tissue combined and labeled as endocervical curetting. Graduated dilators were used until a moderate-sized curette could be passed easily. Endometrial curettings were then performed multiple passes, tissue combined as endometrial curetting. All surfaces of the endometrium felt gritty upon curetting. The cone bed was cauterized and then hemostatic Monsel's solution was placed on the cone bed. Inspection confirmed there were no remaining foreign objects in the vagina. Preliminary and final counts were correct. She was returned to dorsal supine position and was pending reversal of anesthesia when I left the operating room to precede her to the Post Anesthesia Care Unit and to speak to family member via telephone. MD MARGARET Powers/DAMIEN /7:50 AM /2:21 PM
== END | disposition home or self-care (01) ==
LOC: HSDC 05:08
PROVIDERS: ATTEND Obstetrics & Gynecology Gynecologic Oncology
DX: D06.9 Carcinoma in situ of cervix, unspecified (principal); K21.9 Gastro-esophageal reflux disease without esophagitis; K50.90 Crohn's disease, unspecified, without complications; F41.9 Anxiety disorder, unspecified; M19.90 Unspecified osteoarthritis, unspecified site
CPT/HCPCS: 00940; 57520; 86850; 86900; 86901; 88305; 88307; J0690; J1100; J1885; J2250; J2405; J3010; J7120

== ENCOUNTER 2016-10-05 12:58 | Emergency (ER) | payer MEDICAID ==
[~2016-10-05] VITALS: Ht 165.1 cm; Wt 86.4 kg
[~2016-10-05 12:58] MED LIST changes: -CHLORHEXIDINE GLUCONATE 2 % 1 PACK (2 CLOTHS) TOPICAL PRN; -DEXAMETHASONE SOD PHOS 4 MG/ML VIAL ONE; -DO NOT ADM ANY ANTICOAGULANT DRUGS PRN; -ESTROGENS CONJUGATED VAG CREA 15 APPL/30 GM TUBE ONE; -FAMOTIDINE 20 MG/2 ML VIAL ONE; -FERRIC SUBSULFATE 8 ML TOP SOLN TOPICAL ONE; -INSULIN HUMAN REGULAR 1,000 UNITS/10 ML VIAL SQ PRN; -KETOROLAC TROMETHAMINE 30 MG/ML (IVP) VIAL ONE; -KETOROLAC TROMETHAMINE 60 MG/2 ML (IM) VIAL IM ONE; -LACTATED RINGER'S 1000 ML INJ 1,000 ML IV ONE; -LACTATED RINGER'S 1000 ML IV PRN; -LIDOCAINE 1%/EPINEPHrine 1:100,000 SOLN 20 ML VIAL ONE; -METOPROLOL TARTRATE 25 MG TAB PO PRN; -MIDAZOLAM HCL 2 MG/2 ML VIAL ONE; -ONDANSETRON HCL 4 MG/2 ML VIAL IV PUSH ONE; -POVIDONE IODINE 5% (ANTISEPSIS KIT) 4 APPLICATIONS EACH NARE PRN; -PROPOFOL 200 MG/20 ML AMP IV ONE; -SODIUM CHLORID 0.9% 500 ML IV PRN; -VASOPRESSIN INJ 20 UNITS/ML VIAL ONE; -ceFAZolin INJ 1,000 MG VIAL IV ONE
[2016-10-05 13:01] VITALS: BP 136/85; PULSE 86; RESP 12; TEMP 98.7; O2SAT 96
--- NOTE | 2016-10-05 13:06 | PD ---
Physical Exam Date Seen by Provider: Oct 05, 2016 Time Seen by Provider: 13:03 Narrative Pt is a 41 year old female presenting with RUQ abd pain that radiates to her LLQ. Pain has been ongoing for a few days. Pt reports nausea without vomiting. Pt denies any dysuria, fevers, chills. VSS, awaiting bed placement. Data Data Last Documented VS Vital Signs Date Time Temp Pulse Resp B/P Pulse Ox O2 Delivery O2 Flow Rate FiO2 10/05/16 13:01 98.7 86 12 136/85 96 MDM Supervised Visit with [facility]: Petra Acevedo Oct 05, 2016 13:06
[2016-10-05 13:44] LABS: BACTERIA, URINE OCC /hpf; BLOOD, URINE NEG (NEG); COMMENT (UR) CULT NOT INDICATED; CULTURE IF INDICATED CULT NOT INDICATED; GLUCOSE,URINE NEG (NEG); KETONE, URINE NEG (NEG); NITRITE,URINE NEG (NEG); PH, URINE 6.5 (5.0-8.5); SQUAMOUS EPITHELIAL CELL URINE 5 /hpf (0-5); URINE COLOR YELLOW (YELLW/STRAW)
--- NOTE | 2016-10-05 15:24 | PD ---
HPI Chief Complaint: Abdominal Pain Time Seen by Provider: 15:15 Travel History International Travel<30 days: No Contact w/Intl Traveler<30days: No Traveled to known affect area: No History of Present Illness HPI 41-year-old female presents to the emergency Department with 2 day history of intermittent and worsening left-sided abdominal discomfort. Patient states she had a gallbladder out 1 year ago. Patient also states recent diagnosis of cervical cancer after colposcopy, stating she received the diagnosis 2 days ago. Patient states the pain is located in the right upper quadrant with radiation to the left and to the back and into the shoulder last evening. The pain is worse with certain movements as well as with food intake. Patient denies fever, chills, or vomiting. She denies changes in her bowels. She denies urinary symptoms. Urinalysis was performed in triage showing no acute process. Patient also has a history of Crohn's disease. Patient is allergic to adhesives, lactose, and all months. PFSH Past Medical History Depression: Yes Cancer: Yes Cardiovascular Problems: No High Cholesterol: Yes Diabetes: No Diminished Hearing: No Endocrine: No Gastrointestinal Disorders: Yes (CHROHNS, GALLBLADDER PROBLEMS;GERD) GERD: Yes Genitourinary: Yes (fatty liver) Hepatitis: No Hiatal Hernia: No Hypertension: Yes Immune Disorder: No Musculoskeletal: Yes (ddd) Neurologic: Yes (numbness in hands and feet at times) Psychiatric: Yes Reproductive: No Respiratory: Yes (asthma on exertion) Thyroid Disease: No ?: Not LMP: 09/28/16 Tubal Ligation: Yes Past Surgical History Abdominal Surgery: Yes (gallbladder, liver bx) AICD: No Body Medical Devices: N/A Cardiac Surgery: No Ear Surgery: No Endocrine Surgery: No Eye Surgery: No Genitourinary Surgery: No Gynecologic Surgery: Yes (tubal) Joint Replacement: No Neurologic Surgery: No Oral Surgery: Yes (TONSILLECTOMY;FULL UPPER DENTURES) Pacemaker: No Thoracic Surgery: No Tonsillectomy: Yes Other Surgery: Yes (liver biopsy / CERVIX BIOPSY) Social History Alcohol Use: No Tobacco Use: Yes (02/26 ppd) Substance Use: No Allergies-Medications (Allergen,Severity, Reaction): Coded Allergies: Lactose (Verified Allergy, Severe, intolerant, 10/05/16) Adhesives (Unverified Allergy, Intermediate, RASH, 10/05/16) [place] (Verified Allergy, Intermediate, sneeze, 10/05/16) Reported Meds & Prescriptions Reported Meds & Active Scripts Active Fluoxetine (Fluoxetine HCl) 40 Mg Cap 40 Cap PO DAILY Reported Feosol (Ferrous Sulfate) Unknown Strength Tab 325 Mg PO DAILY Pantoprazole (Pantoprazole Sodium) 20 Mg Tab 20 Mg PO DAILY Apriso (Mesalamine) 0.375 Gm Caper 4 Cap PO DAILY Review of Systems Except as stated in HPI: all other systems reviewed are Neg General / Constitutional: No: Fever Eyes: No: Visual changes HENT: No: Headaches Cardiovascular: No: Chest Pain or Discomfort Respiratory: No: Shortness of Breath Gastrointestinal: Positive: Nausea, Abdominal Pain, Loss of Appetite Genitourinary: No: Dysuria Musculoskeletal: No: Pain Skin: No Rash Neurologic: No: Weakness Psychiatric: No: Depression Endocrine: No: Polydipsia Hematologic/Lymphatic: No: Easy Bruising Physical Exam Narrative GENERAL: Patient appears mildly to moderately uncomfortable. She is moving somewhat guardedly. SKIN: Warm and dry. Normal color. Normal turgor. HEAD: Atraumatic. Normocephalic. EYES: Pupils equal and round. No scleral icterus. No injection or drainage. ENT: No nasal bleeding or discharge. Mucous membranes pink and moist. Pharynx is clear. Airway is patent. NECK: Trachea midline. Supple and nontender. CARDIOVASCULAR: Regular rate and rhythm. RESPIRATORY: No accessory muscle use. Clear to auscultation. Breath sounds equal bilaterally. GASTROINTESTINAL: Abdomen soft, patient has guarding and moderate tenderness over the right upper quadrant, as well as a small amount in the left upper quadrant. Patient has mild rebound. No epigastric tenderness is noted. Abdomen is nondistended. Bowel sounds are present in all quadrants. MUSCULOSKELETAL: Extremities without clubbing, cyanosis, or edema. No obvious deformities. NEUROLOGICAL: Awake and alert. No obvious cranial nerve deficits. Motor grossly within normal limits. Five out of 5 muscle strength in the arms and legs. Normal speech. PSYCHIATRIC: Appropriate mood and affect; insight and judgment normal. Data Data Last Documented VS Vital Signs Date Time Temp Pulse Resp B/P Pulse Ox O2 Delivery O2 Flow Rate FiO2 10/05/16 16:34 81 15 147/93 97 Room Air 10/05/16 13:01 98.7 Orders Urinalysis - C+S If Indicated (8/11/17 13:08) Complete Blood Count With Diff (10/05/16 15:39) Comprehensive Metabolic Panel (10/05/16 15:39) Lipase (10/05/16 15:39) Lactic Acid (10/05/16 15:39) Ct Abd/Pel W Iv Contrast(Rout) (10/05/16 15:39) Iv Access Insert/Monitor (10/05/16 15:39) Ecg Monitoring (10/05/16 15:39) Oximetry (10/05/16 15:39) Morphine Inj (Morphine Inj) (10/05/16 15:45) Ondansetron Inj (Zofran Inj) (10/05/16 15:45) Sodium Chlor 0.9% 1000 Ml Inj (Ns 1000 M (10/05/16 15:39) Sodium Chloride 0.9% Flush (Ns Flush) (10/05/16 15:45) Electrocardiogram (10/05/16 15:39) Ketorolac Inj (Toradol Inj) (10/05/16 15:45) Iohexol 350 Inj (Omnipaque 350 Inj) (10/05/16 16:15) Labs Laboratory Tests Test 10/05/16 10/05/16 10/05/16 13:13 16:00 16:38 Urine Color YELLOW Urine Turbidity HAZY Urine pH 6.5 Urine Specific [place] 1.013 Urine Protein NEG mg/dL Urine Glucose (UA) NEG mg/dL Urine Ketones NEG mg/dL Urine Occult Blood NEG Urine Nitrite NEG Urine Bilirubin NEG Urine Urobilinogen 2.0 MG/DL Urine Leukocyte Esterase TRACE Urine RBC LESS THAN 1 /hpf Urine WBC 1 /hpf Urine Squamous Epithelial 5 /hpf Cells Urine Bacteria OCC /hpf Microscopic Urinalysis Comment CULT NOT INDICATED White Blood Count 11.8 TH/MM3 Red Blood Count 4.39 MIL/MM3 Hemoglobin 13.5 GM/DL Hematocrit 39.6 % Mean Corpuscular Volume 90.2 FL Mean Corpuscular Hemoglobin 30.7 PG Mean Corpuscular Hemoglobin 34.0 % Concent Red Cell Distribution Width 13.0 % Platelet Count 326 TH/MM3 Mean Platelet Volume 8.2 FL Neutrophils (%) (Auto) 67.3 % Lymphocytes (%) (Auto) 24.1 % Monocytes (%) (Auto) 6.6 % Eosinophils (%) (Auto) 1.6 % Basophils (%) (Auto) 0.4 % Neutrophils # (Auto) 8.0 TH/MM3 Lymphocytes # (Auto) 2.9 TH/MM3 Monocytes # (Auto) 0.8 TH/MM3 Eosinophils # (Auto) 0.2 TH/MM3 Basophils # (Auto) 0.0 TH/MM3 CBC Comment DIFF FINAL Differential Comment Sodium Level 137 MEQ/L Potassium Level 3.8 MEQ/L Chloride Level 100 MEQ/L Carbon Dioxide Level 29.7 MEQ/L Anion Gap 7 MEQ/L Blood Urea Nitrogen 7 MG/DL Creatinine 0.76 MG/DL Estimat Glomerular Filtration 85 ML/MIN Rate Random Glucose 77 MG/DL Calcium Level 8.9 MG/DL Total Bilirubin 0.3 MG/DL Aspartate Amino Transf 23 U/L (AST/SGOT) Alanine Aminotransferase 34 U/L (ALT/SGPT) Alkaline Phosphatase 39 U/L Total Protein 7.2 GM/DL Albumin 3.4 GM/DL Lipase 227 U/L Lactic Acid Level 0.6 mmol/L MDM Medical Decision Making Medical Screen Exam Complete: Yes Emergency Medical Condition: Yes Medical Record Reviewed: Yes Differential Diagnosis Biliary colic. Gastritis. Hepatitis. Pancreatitis. Crohn's disease. Abdominal pain. Narrative Course Patient is felt to be medically stable at time of exam. Labs ordered including CBC, CMP, lactic acid, lipase, and urinalysis. CT of the abdomen with IV contrast was ordered. IV access is obtained patient is given 4 mg morphine IV as well as 4 mg Zofran IV. Patient is given 1000 mL's normal saline bolus. CT of the abdomen shows slightly less than 2 cm right lobe liver lesion which appears fairly benign, however follow-up with hepatic MRI on an elective basis would be ideally suggested. Mild hepatic steatosis. No acute CT findings. Per radiologist CBC shows slight leukocytosis of 11.8. There is no shift. Urinalysis is unremarkable. CMP is essentially unremarkable. Patient is felt stable for discharge. Patient is to continue her pantoprazole 40 mg daily. She is to watch her diet for aggravating foods She should follow with her primary care physician and/or [facility] moss gatherer as discussed. He shouldn't should return to the [facility] with worsening symptoms as necessary. Diagnosis Primary Impression: Abdominal pain Qualified Code: R10.13 - Epigastric pain Referrals: Primary Care Physician Patient Instructions: General Instructions Additional Instructions: Patient is felt stable for discharge. Patient is to continue her pantoprazole 40 mg daily. She is to watch her diet for aggravating foods She should follow with her primary care physician and/or irish moss gatherer as discussed. He shouldn't should return to the [facility] with worsening symptoms as necessary. Med/Other Pt SpecificInfo: No Change to Meds Disposition: 01 DISCHARGE HOME Condition: Stable Qamar Benjamin Oct 05, 2016 15:24
[2016-10-05] MEDS ORDERED: SODIUM CHLOR 0.9% 1000 ML INJ 1,000 ML IV SCH (15:39)
[2016-10-05] MEDS ORDERED: ONDANSETRON HCL 4 MG/2 ML VIAL IVP ONE (15:45)
[2016-10-05] MEDS ORDERED: KETOROLAC TROMETHAMINE 30 MG/ML (IVP) VIAL IVP ONE (15:45)
[2016-10-05] MEDS ORDERED: SODIUM CHLORIDE 0.9% FLUSH 10 ML FLUSH IV FLUSH PRN (15:45)
[2016-10-05] MEDS ORDERED: MORPHINE SULFATE 4 MG/ML INJ IV PUSH ONE (15:45)
[2016-10-05] MEDS ORDERED: IOHEXOL 350 MG/ML 10 ML VIAL (for RAD DIAG) IV ONE (16:15)
--- NOTE | 2016-10-05 16:27 | RADRPT ---
EXAM DATE/TIME: 10/05/2016 16:01 [facility] COMPARISON: No previous studies available for comparison. INDICATIONS : Right sided abdomen pain for two days. IV CONTRAST: 96 cc Omnipaque 350 (iohexol) IV ORAL CONTRAST: Prescribed oral contrast ingested. RADIATION DOSE: 9.98 CTDIvol (mGy) MEDICAL HISTORY : Fatty liver, CSP sx, Liver sx, Asthma, Crohn's. SURGICAL HISTORY : Cholecystectomy. Tubal ligation. ENCOUNTER: Initial ACUITY: 2 days PAIN SCALE: 5/10 LOCATION: Right upper quadrant TECHNIQUE: Volumetric scanning of the abdomen and pelvis was performed. Using automated exposure control and ad justment of the mA and/or kV according to patient size, radiation dose was kept as low as reasonably achievable to obtain optimal diagnostic quality images. DICOM format image data is available electro nically for review and comparison. FINDINGS: LOWER LUNGS: The visualized lower lungs are clear. LIVER: Mildly diminished hepatic attenuation may reflect mild steatosis. There is a slightly less than 2 cm hyper attenuating or enhancing focus in the right lobe which may be a hemangioma or focal sparing. Th is does not have a suspicious appearance however followup would ideally be recommended with hepatic M RI. The gallbladder is surgically absent. There is no biliary ductal dilatation identified. SPLEEN: Normal size without lesion. PANCREAS: Within normal limits. KIDNEYS: Normal in size and shape. There is no mass, stone or hydronephrosis. ADRENAL GLANDS: Within normal limits. VASCULAR: There is no aortic aneurysm. BOWEL/MESENTERY: The stomach, small bowel, and colon demonstrate no acute abnormality. There is no free intraperitone al air or fluid. ABDOMINAL WALL: Within normal limits. RETROPERITONEUM: There is no lymphadenopathy. BLADDER: No wall thickening or mass. REPRODUCTIVE: Within normal limits. INGUINAL: There is no lymphadenopathy or hernia. MUSCULOSKELETAL: Within normal limits for patient age. CONCLUSION: Slightly less than 2 cm right lobe liver lesion which appears fairly benign however followup with [facility] MRI on an elective basis would be ideally suggested. Mild hepatic steatosis. No acute CT findings. Lawrence Luke MD on October 05, 2016 at 16:18 Board Certified Radiologist. This report was verified electronically.
[2016-10-05 16:33] VITALS: O2SAT 99
[2016-10-05 16:34] VITALS: BP 147/93; PULSE 81; RESP 15; O2SAT 97
[2016-10-05 16:45] LABS: BASOPHIL % 0.4 % (0.0-2.0); EOSINOPHIL # 0.2 TH/MM3 (0-0.4); EOSINOPHIL % 1.6 % (0.0-4.0); HEMATOCRIT 39.6 % (35.0-46.0); HEMO FLAGS DIFF FINAL; LYMPH % 24.1 % (9.0-44.0); LYMPHOCYTE # 2.9 TH/MM3 (1.0-4.8); MEAN CELL VOLUME 90.2 FL (80.0-100.0); MEAN CORPUSCULAR HEMOGLOBIN 30.7 PG (27.0-34.0); MONO % 6.6 % (0.0-8.0); NEUT % 67.3 % (16.0-70.0); PLATELET COUNT 326 TH/MM3 (150-450); RED BLOOD COUNT 4.39 MIL/MM3 (4.00-5.30); WHITE BLOOD COUNT 11.8 TH/MM3 (4.0-11.0)
--- NOTE | 2016-10-05 17:10 | PD ---
Data Data Last Documented VS Vital Signs Date Time Temp Pulse Resp B/P Pulse Ox O2 Delivery O2 Flow Rate FiO2 10/05/16 16:34 81 15 147/93 97 Room Air 10/05/16 13:01 98.7 Orders Urinalysis - C+S If Indicated (10/05/16 13:08) Complete Blood Count With Diff (10/05/16 15:39) Comprehensive Metabolic Panel (10/05/16 15:39) Lipase (10/05/16 15:39) Lactic Acid (10/05/16 15:39) Ct Abd/Pel W Iv Contrast(Rout) (10/05/16 15:39) Iv Access Insert/Monitor (10/05/16 15:39) Ecg Monitoring (10/05/16 15:39) Oximetry (10/05/16 15:39) Morphine Inj (Morphine Inj) (10/05/16 15:45) Ondansetron Inj (Zofran Inj) (10/05/16 15:45) Sodium Chlor 0.9% 1000 Ml Inj (Ns 1000 M (10/05/16 15:39) Sodium Chloride 0.9% Flush (Ns Flush) (10/05/16 15:45) Electrocardiogram (10/05/16 15:39) Ketorolac Inj (Toradol Inj) (10/05/16 15:45) Iohexol 350 Inj (Omnipaque 350 Inj) (10/05/16 16:15) Labs Laboratory Tests Test 10/05/16 10/05/16 13:13 16:00 Urine Color YELLOW Urine Turbidity HAZY Urine pH 6.5 Urine Specific [place] 1.013 Urine Protein NEG mg/dL Urine Glucose (UA) NEG mg/dL Urine Ketones NEG mg/dL Urine Occult Blood NEG Urine Nitrite NEG Urine Bilirubin NEG Urine Urobilinogen 2.0 MG/DL Urine Leukocyte Esterase TRACE Urine RBC LESS THAN 1 /hpf Urine WBC 1 /hpf Urine Squamous Epithelial 5 /hpf Cells Urine Bacteria OCC /hpf Microscopic Urinalysis Comment CULT NOT INDICATED White Blood Count 11.8 TH/MM3 Red Blood Count 4.39 MIL/MM3 Hemoglobin 13.5 GM/DL Hematocrit 39.6 % Mean Corpuscular Volume 90.2 FL Mean Corpuscular Hemoglobin 30.7 PG Mean Corpuscular Hemoglobin 34.0 % Concent Red Cell Distribution Width 13.0 % Platelet Count 326 TH/MM3 Mean Platelet Volume 8.2 FL Neutrophils (%) (Auto) 67.3 % Lymphocytes (%) (Auto) 24.1 % Monocytes (%) (Auto) 6.6 % Eosinophils (%) (Auto) 1.6 % Basophils (%) (Auto) 0.4 % Neutrophils # (Auto) 8.0 TH/MM3 Lymphocytes # (Auto) 2.9 TH/MM3 Monocytes # (Auto) 0.8 TH/MM3 Eosinophils # (Auto) 0.2 TH/MM3 Basophils # (Auto) 0.0 TH/MM3 CBC Comment DIFF FINAL Differential Comment MDM Supervised Visit with [facility]: Yes Narrative Course The history, exam, and medical decision-making in the associated mid-level provider note were completed with my assistance. I reviewed and agree with the findings presented. I attest that I had a [id number] encounter with the patient on the same day, and personally performed and documented my assessment and findings in the medical record. *My assessment and Findings: 41 year-old woman history of Crohn's disease, had her gallbladder about a year or so ago, is now having, crampy epigastric and right upper quadrant abdominal pain. Been going on for the past day or so. She looks well. She has a benign abdominal exam. We'll check labs and imaging. Expect she can follow-up as an outpatient with supportive treatment. Nadir Lorenzana MD Oct 05, 2016 17:10
[2016-10-05 17:17] LABS: ANION GAP 7 MEQ/L (5-15); AST (GOT) 23 U/L (15-37); BICARBONATE 29.7 MEQ/L (21.0-32.0); BLOOD UREA NITROGEN 7 MG/DL (7-18); CHLORIDE 100 MEQ/L (98-107); GLOMERULAR FILTRATION RATE 85 ML/MIN (>89); POTASSIUM 3.8 MEQ/L (3.5-5.1); SODIUM (NA) 137 MEQ/L (136-145)
[2016-10-05 17:22] LABS: ALKALINE PHOSPHATASE 39 U/L (45-117); ALT (GPT) 34 U/L (10-53); TOTAL BILIRUBIN ADULT 0.3 MG/DL (0.2-1.0)
--- NOTE | 2016-10-06 17:15 | EKG ---
Date Performed: 10/05/2016 Time Performed: 16:28:37 PTAGE: 41 years EKG: Sinus rhythm NORMAL ECG Compared to prior tracing no significant change PREVIOUS TRACING : 08/06/2016 02.50 DOCTOR: Pb Patel Interpretating Date/Time 10/06/2016 17:13:06
[2016-11-19] MEDS ORDERED: GABA300C5 PO (21:38)
== END 2016-10-05 17:54 | disposition home or self-care (01) ==
LOC: NEPD 12:58
DX: R10.11 Right upper quadrant pain (principal); R10.13 Epigastric pain; K76.0 Fatty (change of) liver, not elsewhere classified; K50.90 Crohn's disease, unspecified, without complications; K21.9 Gastro-esophageal reflux disease without esophagitis; I10 Essential (primary) hypertension; J45.909 Unspecified asthma, uncomplicated; F32.9 Major depressive disorder, single episode, unspecified; E78.00 Pure hypercholesterolemia, unspecified
CPT/HCPCS: 74177; 80053; 81001; 83605; 83690; 85025; 93005; 96361; 96374; 96375; 99285; J1885; J2270; J2405; J7030; Q9967

== ENCOUNTER 2016-10-31 23:57 | Emergency (ER) | payer MEDICAID ==
[2016-10-31] MEDS ORDERED: IOHEXOL 350 MG/ML 10 ML VIAL (for RAD DIAG) IVCONTRAST ONE (23:58)
[2016-10-31 23:59] VITALS: BP 150/85; PULSE 93; RESP 16; TEMP 99.4; O2SAT 98
[2016-11-01 00:31] VITALS: RESP 16; O2SAT 100
--- NOTE | 2016-11-01 00:50 | PD ---
HPI Chief Complaint: Abdominal Pain Time Seen by Provider: 00:08 Travel History International Travel<30 days: No Contact w/Intl Traveler<30days: No History of Present Illness HPI The patient is a 41 year old female who presents to the [facility] emergency department with a history of lower abdominal pain that she reports began in the left lower quadrant of the abdomen earlier today around 5:30 PM. She reports that the pain is been coming and going. She reports that the character of the pain alternates between sharp and dull. The patient reports that just prior to arrival the pain also began on the right lower quadrant of the abdomen. She reports having nausea without vomiting or diarrhea. Her last bowel movement was earlier today and was soft. She reports that her recent bowel history has been complicated by constipation up until today for the last 1 -2 weeks. The patient normally moves her bowels 3-4 times per day at baseline related to her Crohn's. She is on [employer] for Crohn's. 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 Her primary care physician is . Her other recent medical history is complicated by having high- grade cervical dysplasia status post conization which she is in the process of scheduling a hysterectomy for with Dr. Callahan. I review systems, the patient denies any recent fevers, cough, congestion, neck pain, chest pain, shortness of breath, urinary symptoms, or neurologic symptoms. LMP: Approximately a week and a half ago PFSH Past Medical History Narrative Medical the patient's past medical history is significant for anxiety disorder, arthritis, Crohn's disease since 17 years of age, acid reflux, iron deficiency anemia, and high-grade cervical dysplasia that she is in the process of planning a hysterectomy 4. Anxiety: Yes Depression: Yes Cancer: Yes (cervical) Cardiovascular Problems: No High Cholesterol: Yes Diabetes: No Diminished Hearing: No Endocrine: No Gastrointestinal Disorders: Yes (ulcer colitis) GERD: Yes Genitourinary: Yes (fatty liver) Hepatitis: No Hiatal Hernia: No Hypertension: No Immune Disorder: No Musculoskeletal: Yes (ddd) Psychiatric: Yes Reproductive: No Respiratory: Yes (asthma on exertion) Thyroid Disease: No Tetanus Vaccination: Unknown ?: Not LMP: 10-19-16 Menopausal: No Tubal Ligation: Yes Past Surgical History Narrative Surgical the patient's past surgical history is significant for tonsillectomy, right lateral tubal ligation, cholecystectomy, colonoscopy, liver biopsy, tumor removal from her finger, and conization for high-grade cervical dysplasia. Abdominal Surgery: Yes (gallbladder, liver bx) AICD: No Body Medical Devices: N/A Cardiac Surgery: No Ear Surgery: No Endocrine Surgery: No Eye Surgery: No Genitourinary Surgery: No Gynecologic Surgery: Yes (tubal) Joint Replacement: No Neurologic Surgery: No Oral Surgery: Yes (TONSILLECTOMY;FULL UPPER DENTURES) Pacemaker: No Thoracic Surgery: No Tonsillectomy: Yes Other Surgery: Yes (liver biopsy / CERVIX BIOPSY) Social History Alcohol Use: No Tobacco Use: Yes (02/26 ppd) Substance Use: No Allergies-Medications (Allergen,Severity, Reaction): Coded Allergies: lactose (Unverified Allergy, Severe, intolerant, 11/01/16) adhesive (Unverified Allergy, Intermediate, RASH, 11/01/16) almond (Unverified Allergy, Intermediate, sneeze, 11/01/16) Reported Meds & Prescriptions Reported Meds & Active Scripts Active Reported Pantoprazole (Pantoprazole Sodium) 20 Mg Tab 20 Mg PO DAILY Apriso (Mesalamine) 0.375 Gm Caper 4 Cap PO DAILY Review of Systems Except as stated in HPI: all other systems reviewed are Neg General / Constitutional: No: Fever Eyes: No: Visual changes HENT: No: Headaches Cardiovascular: No: Chest Pain or Discomfort Respiratory: No: Shortness of Breath Gastrointestinal: Positive: Nausea, Abdominal Pain, Constipation, No: Vomiting , Diarrhea Genitourinary: Positive: Decreased Urinary Output, Pelvic Pain, No: Urgency, Frequency, Dysuria, Discharge, Vaginal Bleeding Musculoskeletal: No: Pain Skin: No Rash Neurologic: No: Weakness, Focal Abnormalities, Change in Mentation, Slurred Speech, Sensory Disturbance Psychiatric: No: Depression Endocrine: No: Polydipsia Hematologic/Lymphatic: No: Easy Bruising Physical Exam Narrative General: The patient is a well-developed well-nourished female in no acute distress. Head and Neck exam: Head is normocephalic atraumatic. Eyes: EOMI, pupils are equal round and reactive to light. Nose: Midline septum with pink mucous membranes Mouth: Dentition unremarkable. Moist mucus membranes. Posterior oropharynx is not erythematous. No tonsillar hypertrophy. Uvula midline. Airway patent. Neck: No palpable lymphadenopathy. No nuchal rigidity. No thyromegaly. Cardiovascular: Regular rate and rhythm without murmurs, gallops, or rubs. Lungs: Clear to auscultation bilaterally. No wheezes, rhonchi, or rales. Abdomen: Soft, with reported tenderness on palpation of bilateral upper and lower quadrants of the abdomen. No guarding, rebound, or rigidity. The patient has a negative Estrada sign. No point tenderness specifically over McBurney's point. Normal bowel sounds are audible. Extremities: No clubbing, cyanosis, or edema. 2+ pulses in all 4 extremities. No calf tenderness on palpation. Back: No spinous process tenderness to palpation. No costovertebral angle tenderness to palpation. Neurologic Exam: Grossly nonfocal. Skin Exam: No rash noted. Intact skin that is warm and dry. Gynecologic exam: The patient was placed in the dorsal lithotomy position. Her external genitalia were examined. She had no evidence of rash or lesions. The speculum was placed into her vagina and the cervix was identified. She had a physiologic appearing clear white discharge. No cervical friability. On Bimanual exam: she has no cervical motion tenderness. No adnexal tenderness or prominence noted on palpation. No uterine tenderness or enlargement noted on palpation. Data Data Last Documented VS Vital Signs Date Time Temp Pulse Resp B/P (MAP) Pulse Ox O2 Delivery O2 Flow Rate FiO2 11/01/16 00:31 16 100 Room Air 10/31/16 23:59 99.4 93 Orders Orders Complete Blood Count With Diff (11/01/16 00:25) Comprehensive Metabolic Panel (11/01/16:25) C-Reactive Protein (Crp) (11/01/16 00:25) Lipase (11/01/16:25) Urinalysis - C+S If Indicated (11/01/16:25) [place]gren Sedimentation Rate (11/01/16:25) Magnesium (Mg) (11/01/16:25) Ct Abd/Pel W Iv Contrast(Rout) (11/01/16 00:25) Iv Access Insert/Monitor (11/01/16 00:25) Ecg Monitoring (11/01/16:25) Oximetry (11/01/16:25) Ed Urine Pregnancytest Poc (9/7/17 00:25) Sodium Chlor 0.9% 1000 Ml Inj (Ns 1000 M (11/01/16 01:00) Ondansetron Inj (Zofran Inj) (11/01/16 01:00) Ketorolac Inj (Toradol Inj) (11/01/16 01:00) Iohexol 350 Inj (Omnipaque 350 Inj) (10/31/16 23:58) Sodium Chlorid 0.9% 500 Ml Inj (Ns 500 M (11/01/16 02:00) Gc And Chlamydia Pcr (11/01/16 02:45) Wet Prep Profile (11/01/16 02:45) Labs Laboratory Tests Test 11/01/16 00:15 11/01/16 02:20 11/01/16 02:35 11/01/16 02:45 White Blood Count 12.2 TH/MM3 Red Blood Count 4.17 MIL/MM3 Hemoglobin 12.6 GM/DL Hematocrit 38.1 % Mean Corpuscular Volume 91.4 FL Mean Corpuscular Hemoglobin 30.2 PG Mean Corpuscular Hemoglobin Concent 33.1 % Red Cell Distribution Width 13.0 % Platelet Count 299 TH/MM3 Mean Platelet Volume 8.3 FL Neutrophils (%) (Auto) 63.2 % Lymphocytes (%) (Auto) 26.7 % Monocytes (%) (Auto) 6.8 % Eosinophils (%) (Auto) 2.8 % Basophils (%) (Auto) 0.5 % Neutrophils # (Auto) 7.7 TH/MM3 Lymphocytes # (Auto) 3.3 TH/MM3 Monocytes # (Auto) 0.8 TH/MM3 Eosinophils # (Auto) 0.3 TH/MM3 Basophils # (Auto) 0.1 TH/MM3 CBC Comment DIFF FINAL Differential Comment Blood Urea Nitrogen 15 MG/DL Creatinine 0.79 MG/DL Random Glucose 104 MG/DL Total Protein 7.2 GM/DL Albumin 3.4 GM/DL Calcium Level 9.2 MG/DL Magnesium Level 1.8 MG/DL Alkaline Phosphatase 38 U/L Aspartate Amino Transf (AST/SGOT) 23 U/L Alanine Aminotransferase (ALT/SGPT) 43 U/L Total Bilirubin 0.3 MG/DL Sodium Level 135 MEQ/L Potassium Level 3.9 MEQ/L Chloride Level 101 MEQ/L Carbon Dioxide Level 26.7 MEQ/L Anion Gap 7 MEQ/L Estimat Glomerular Filtration Rate 81 ML/MIN C-Reactive Protein 0.71 MG/DL Lipase 265 U/L Urine Color YELLOW Urine Turbidity CLEAR Urine pH 6.0 Urine Specific [place] GREATER THAN 1.050 Urine Protein 30 mg/dL Urine Glucose (UA) NEG mg/dL Urine Ketones NEG mg/dL Urine Occult Blood NEG Urine Nitrite NEG Urine Bilirubin NEG Urine Urobilinogen LESS THAN 2.0 MG/DL Urine Leukocyte Esterase NEG Urine RBC 1 /hpf Urine WBC 1 /hpf Urine Squamous Epithelial Cells 8 /hpf Urine Calcium Oxalate Crystals RARE /hpf Urine Bacteria RARE /hpf Urine Mucus FEW /lpf Microscopic Urinalysis Comment CULT NOT INDICATED Clue Cells (Wet Prep) NONE SEEN Vaginal Trichomonas (Wet Prep) NONE SEEN Vaginal Yeast (Wet Prep) NONE SEEN MDM Medical Decision Making Medical Screen Exam Complete: Yes Emergency Medical Condition: Yes Medical Record Reviewed: Yes Interpretation(s) Last Impressions Abdomen/Pelvis CT 11/01/16 0025 Signed Impressions: Service Date/Time: , November 01, 2016 01:31 - CONCLUSION: 1. No acute CT findings to explain patient's abdominal pain. 2. Stable 1.7 cm ill-defined region of enhancement in the right lobe of the liver. Again, further characterization may be performed with liver mass protocol MRI exam on outpatient basis as indicated. 3. 2 cm cystic lesion in the right adnexa, likely an ovarian cyst. Tacos Dick MD Differential Diagnosis Constipation, versus fecal impaction, versus colitis, versus diverticulitis, versus Crohn's exacerbation, versus PID Narrative Course During the course of the patients emergency department visit, the patients history, examination, and differential diagnosis were reviewed with the patient. The patient had IV access obtained and blood work sent for analysis. The patient states on a athletic monitor with oximetry and blood pressure monitoring. A CT scan of the abdomen and pelvis has been ordered. The patient was initially provided the patient was provided normal saline 1 L IV fluid bolus, Toradol 15 mg IV, Zofran 4 mg IV. The patients laboratory studies were reviewed and remarkable for white count of 12.2, hemoglobin 12.6, platelets 299 with a normal differential, CMP is remarkable for sodium of 135, GFR of 81, alkaline phosphatase 38, C-reactive protein 0.71, lipase 65, urinalysis is unremarkable. Wet prep is negative. Radiology studies were reviewed and remarkable for CT scan of the abdomen and pelvis that shows no acute CT findings to explain the patient's abdominal pain. She has a stable ill-defined region of enhancement in the right lobe of the liver, again further characterization can be performed with liver mass protocol MRI exam on an outpatient basis as indicated. CT scan also shows a 2 cm cystic lesion in the right adnexa likely related to an ovarian cyst. The patient's pelvic examination shows no signs of an infectious process related to her recent gynecologic procedure. I suspect that the patient's symptoms are related to her recent change in bowel bowel movement history. I recommended a gentle laxative for the patient. She reports that she does not want anything prescribed, however she would like something natural and over-the- counter. I did recommend Benefiber. In addition, I recommended that she increase green leafy vegetables and beans in her diet. The patient is instructed to walk 30 minutes daily to assist with increasing her bowel movements, and drink 8 glasses of water daily. The patient is given an outpatient lab slip for a liver mass protocol MRI is recommended on her CT. The patient is resting comfortably and feels better, is alert and in no distress. The patients results and examination findings were discussed with the patient. The repeat examination is unremarkable and benign. The history, exam, diagnostic testing, and current condition do not suggest any significant pathology to warrant further testing, continued ED treatment, admission, or surgical evaluation at this point. The vital signs have been stable. The patient does not have uncontrollable pain, intractable vomiting, or other significant symptoms. The patient's condition is stable and appropriate for discharge. The patient will pursue further outpatient evaluation with a primary care physician or other designated or consulting physician as indicated in the discharge instructions. The patient expressed understanding and was agreeable with this plan. Diagnosis Primary Impression: Abdominal pain Qualified Codes: R10.84 - Generalized abdominal pain Additional Impression: Constipation Qualified Codes: K59.00 - Constipation, unspecified Referrals: Primary Care Physician 3 days Patient Instructions: Abdominal Pain (ED), General Instructions Additional Instructions: I did recommend Benefiber. In addition, I recommended that she increase green leafy vegetables and beans in her diet. The patient is instructed to walk 30 minutes daily to assist with increasing her bowel movements, and drink 8 glasses of water daily. The patient is given an outpatient lab slip for a liver mass protocol MRI is recommended on her CT. she is also provided a copy of her CT scan report to discuss further with her primary care physician and Dr. Callahan. Med/Other Pt SpecificInfo: No Change to Meds Disposition: 01 DISCHARGE HOME Condition: Stable Pratima Padgett MD Nov 01, 2016 00:50
[2016-11-01 00:54] LABS: AUTOMATED NEUTROPHIL # 7.7 TH/MM3 (1.8-7.7); BASOPHIL # 0.1 TH/MM3 (0-0.2); BASOPHIL % 0.5 % (0.0-2.0); EOSINOPHIL # 0.3 TH/MM3 (0-0.4); EOSINOPHIL % 2.8 % (0.0-4.0); HEMATOCRIT 38.1 % (35.0-46.0); HEMO FLAGS DIFF FINAL; LYMPH % 26.7 % (9.0-44.0); LYMPHOCYTE # 3.3 TH/MM3 (1.0-4.8); MEAN CELL VOLUME 91.4 FL (80.0-100.0); MEAN CORPUSCULAR HEMOGLOBIN 30.2 PG (27.0-34.0); MEAN CORPUSCULAR HGB CONC 33.1 % (32.0-36.0); MONO % 6.8 % (0.0-8.0); NEUT % 63.2 % (16.0-70.0); PLATELET COUNT 299 TH/MM3 (150-450); RED BLOOD COUNT 4.17 MIL/MM3 (4.00-5.30); WHITE BLOOD COUNT 12.2 TH/MM3 (4.0-11.0)
[2016-11-01] MEDS ORDERED: SODIUM CHLOR 0.9% 1000 ML INJ 1,000 ML IV ONE (01:00)
[2016-11-01] MEDS ORDERED: ONDANSETRON HCL 4 MG/2 ML VIAL IV ONE (01:00)
[2016-11-01] MEDS ORDERED: KETOROLAC TROMETHAMINE 30 MG/ML (IVP) VIAL IV PUSH ONE (01:00)
[2016-11-01 01:12] LABS: ALT (GPT) 43 U/L (10-53); ANION GAP 7 MEQ/L (5-15); AST (GOT) 23 U/L (15-37); BICARBONATE 26.7 MEQ/L (21.0-32.0); BLOOD UREA NITROGEN 15 MG/DL (7-18); CHLORIDE 101 MEQ/L (98-107); GLOMERULAR FILTRATION RATE 81 ML/MIN (>89); MAGNESIUM 1.8 MG/DL (1.5-2.5); POTASSIUM 3.9 MEQ/L (3.5-5.1); SODIUM (NA) 135 MEQ/L (136-145)
[2016-11-01 01:15] LABS: ALKALINE PHOSPHATASE 38 U/L (45-117); TOTAL BILIRUBIN ADULT 0.3 MG/DL (0.2-1.0)
[2016-11-01] MEDS ORDERED: SODIUM CHLORID 0.9% 500 ML INJ 500 ML IV ONE (02:00)
--- NOTE | 2016-11-01 02:10 | RADRPT ---
EXAM DATE/TIME: 11/01/2016 01:31 [facility] COMPARISON: CT ABDOMEN & PELVIS W CONTRAST, October 05, 2016, 16:01. INDICATIONS : Abdomen pain.with nausea. IV CONTRAST: 80 cc Omnipaque 350 (iohexol) IV ORAL CONTRAST: No oral contrast ingested. RADIATION DOSE: 15.86 CTDIvol (mGy) MEDICAL HISTORY : Gastroesophageal reflux disease. SURGICAL HISTORY : Cholecystectomy. Tubal ligation. ENCOUNTER: Initial ACUITY: 1 day PAIN SCALE: 6/10 LOCATION: Bilateral abdomen TECHNIQUE: Volumetric scanning of the abdomen and pelvis was performed. Using automated exposure control and ad justment of the mA and/or kV according to patient size, radiation dose was kept as low as reasonably achievable to obtain optimal diagnostic quality images. DICOM format image data is available electro nically for review and comparison. FINDINGS: LOWER LUNGS: The visualized lower lungs are clear. LIVER: There is a 1.7 cm ill-defined region of increased enhancement in the right lobe of the liver similar to previous examination. Liver otherwise demonstrates normal enhancement without evidence for intrape lvic ductal dilatation. Gallbladder is surgically absent. SPLEEN: Normal size without lesion. PANCREAS: Within normal limits. KIDNEYS: Normal in size and shape. There is no mass, stone or hydronephrosis. ADRENAL GLANDS: Within normal limits. VASCULAR: There is no aortic aneurysm. BOWEL/MESENTERY: The stomach, small bowel, and colon demonstrate no acute abnormality. There is no free intraperitone al air or fluid. ABDOMINAL WALL: Within normal limits. RETROPERITONEUM: There is no lymphadenopathy. BLADDER: No wall thickening or mass. REPRODUCTIVE: Small amount of endometrial fluid. Small 2 cm cystic lesion in the right adnexa likely reflecting an ovarian cyst. INGUINAL: There is no lymphadenopathy or hernia. MUSCULOSKELETAL: Within normal limits for patient age. CONCLUSION: 1. No acute CT findings to explain patient's abdominal pain. 2. Stable 1.7 cm ill-defined region of enhancement in the right lobe of the liver. Again, further natali racterization may be performed with liver mass protocol MRI exam on outpatient basis as indicated. 3. 2 cm cystic lesion in the right adnexa, likely an ovarian cyst. Tacos Dick MD on November 01, 2016 at 1:59 Board Certified Radiologist. This report was verified electronically.
[2016-11-01 02:11] VITALS: RESP 16
[2016-11-01 03:02] LABS: BACTERIA, URINE RARE /hpf; BLOOD, URINE NEG (NEG); CALCIUM OXALATE CRYSTALS,URINE RARE /hpf; COMMENT (UR) CULT NOT INDICATED; CULTURE IF INDICATED CULT NOT INDICATED; GLUCOSE,URINE NEG (NEG); KETONE, URINE NEG (NEG); MUCUS URINE FEW /lpf (OCC); NITRITE,URINE NEG (NEG); SQUAMOUS EPITHELIAL CELL URINE 8 /hpf (0-5); URINE COLOR YELLOW (YELLW/STRAW)
[2016-11-01 05:12] LABS: CHLAMYDIA PCR NOT DETECTED (NOT DETECT); NEISSERIA PCR NOT DETECTED (NOT DETECT)
[2016-11-19] MEDS ORDERED: GABA300C5 PO (21:38)
== END 2016-11-01 04:39 | disposition home or self-care (01) ==
LOC: NEPC 23:57
DX: R10.84 Generalized abdominal pain (principal); K59.00 Constipation, unspecified; K21.9 Gastro-esophageal reflux disease without esophagitis
CPT/HCPCS: 74177; 80053; 81001; 83690; 83735; 84703; 85025; 85652; 86140; 87210; 87491; 87591; 96361; 96374; 96375; 99285; J1885; J2405; J7030; Q9967

== ENCOUNTER → 2016-11-12 | Outpatient (CLI) | payer MEDICAID ==
[~2016-11-12] MED LIST changes: -FERR200T PO; -FLUO40CA PO; +GABA300C5 PO; +OXYC1TAB63 PO; +SULF1TAB23 PO
[2016-11-12 12:38] LABS: AUTOMATED NEUTROPHIL # 8.4 TH/MM3 (1.8-7.7); BASOPHIL % 0.4 % (0.0-2.0); EOSINOPHIL # 0.2 TH/MM3 (0-0.4); EOSINOPHIL % 1.9 % (0.0-4.0); HEMATOCRIT 41.4 % (35.0-46.0); HEMO FLAGS DIFF FINAL; LYMPHOCYTE # 2.7 TH/MM3 (1.0-4.8); MEAN CELL VOLUME 90.9 FL (80.0-100.0); MEAN CORPUSCULAR HEMOGLOBIN 29.5 PG (27.0-34.0); MEAN CORPUSCULAR HGB CONC 32.5 % (32.0-36.0); MONO % 5.9 % (0.0-8.0); NEUT % 69.8 % (16.0-70.0); PLATELET COUNT 330 TH/MM3 (150-450); RED BLOOD COUNT 4.55 MIL/MM3 (4.00-5.30); RED CELL DISTRIBUTION WIDTH 13.5 % (11.6-17.2); WHITE BLOOD COUNT 12.1 TH/MM3 (4.0-11.0)
[2016-11-12 12:48] LABS: APTT (PATIENT) 28.1 SEC (24.3-30.1); INTERNATIONAL NORMALIZED RATIO 0.9 RATIO; PROTHROMBIN TIME - PATIENT 9.6 SEC (9.8-11.6)
[2016-11-12 13:09] LABS: ANION GAP 9 MEQ/L (5-15); AST (GOT) 20 U/L (15-37); BICARBONATE 26.9 MEQ/L (21.0-32.0); BLOOD UREA NITROGEN 7 MG/DL (7-18); CHLORIDE 101 MEQ/L (98-107); GLOMERULAR FILTRATION RATE 79 ML/MIN (>89); GLUCOSE,FASTING 86 MG/DL (74-99); SODIUM (NA) 137 MEQ/L (136-145)
[2016-11-12 13:14] LABS: ALKALINE PHOSPHATASE 43 U/L (45-117); ALT (GPT) 30 U/L (10-53); TOTAL BILIRUBIN ADULT 0.4 MG/DL (0.2-1.0)
[2016-11-12 13:25] LABS: BHCG SCREEN QUALITATIVE LESS THAN 1 MIU/ML (0-5)
== END ==
LOC: CPRE 10:55
PROVIDERS: ATTEND Obstetrics & Gynecology Gynecologic Oncology
DX: Z01.812 Encounter for preprocedural laboratory examination (principal); N87.1 Moderate cervical dysplasia; Z79.01 Long term (current) use of anticoagulants
CPT/HCPCS: 36415; 80053; 84703; 85025; 85610; 85730

== ENCOUNTER 2016-11-15 07:42 | Observation (INO) | payer MEDICAID ==
[~2016-11-15] VITALS: Ht 165.1 cm; Wt 87.2 kg
[~2016-11-15 07:42] MED LIST changes: -GABA300C5 PO; -OXYC1TAB63 PO; -PANT20TA2 PO; -SULF1TAB23 PO
[2016-11-15] MEDS ORDERED: SODIUM CHLORID 0.9% 500 ML IV PRN (08:00)
[2016-11-15] MEDS ORDERED: ceFAZolin 2 GM PREMIX 50 ML IV SCH (08:00)
[2016-11-15] MEDS ORDERED: LACTATED RINGER'S 1000 ML IV PRN (08:00)
[2016-11-15] MEDS ORDERED: CHLORHEXIDINE GLUCONATE 2 % 1 PACK (2 CLOTHS) TOPICAL PRN (08:00)
[2016-11-15] MEDS ORDERED: METOPROLOL TARTRATE 25 MG TAB PO PRN (08:00)
[2016-11-15] MEDS ORDERED: INSULIN HUMAN REGULAR 1,000 UNITS/10 ML VIAL SQ PRN (08:00)
[2016-11-15] MEDS ORDERED: POVIDONE IODINE 5% (ANTISEPSIS KIT) 4 APPLICATIONS EACH NARE PRN (08:00)
[2016-11-15] MEDS ORDERED: HEPARIN SODIUM - SQ 10,000 UNITS/ML VIAL SQ ONE (08:15)
[2016-11-15] MEDS ORDERED: KETOROLAC TROMETHAMINE 30 MG/ML (IVP) VIAL IV PUSH ONE (12:00)
[2016-11-15] MEDS ORDERED: PROPOFOL 200 MG/20 ML AMP IV ONE (12:00)
[2016-11-15] MEDS ORDERED: DEXAMETHASONE SOD PHOS 4 MG/ML VIAL IV ONE (12:00)
[2016-11-15] MEDS ORDERED: ePHEDrine/NS 25 MG/5 ML SYR IV ONE (12:00)
[2016-11-15] MEDS ORDERED: MIDAZOLAM HCL 2 MG/2 ML VIAL IV ONE (12:00)
[2016-11-15] MEDS ORDERED: STERILE WATER FOR INJECTION 20 ML VIAL IV ONE (12:00)
[2016-11-15] MEDS ORDERED: ceFAZolin INJ 1,000 MG VIAL IV ONE ×2 (12:00→15:35)
[2016-11-15] MEDS ORDERED: LIDOCAINE HCL 1% PF 5 ML AMPULE OTHER ONE (12:00)
[2016-11-15] MEDS ORDERED: LACTATED RINGER'S 1000 ML INJ 1,000 ML IV ONE (12:00)
[2016-11-15] MEDS ORDERED: ONDANSETRON HCL 4 MG/2 ML VIAL IV PUSH ONE (12:00)
[2016-11-15] MEDS ORDERED: VECURONIUM BROMIDE 20 MG VIAL IV ONE (12:00)
[2016-11-15] MEDS ORDERED: NORMOSOL R INJ 2,000 ML IV ONE (12:00)
[2016-11-15] MEDS ORDERED: ROCURONIUM INJ 50 MG/5 ML SYRINGE IV PUSH ONE (12:00)
[2016-11-15] MEDS ORDERED: ACETAMINOPHEN 1000 MG/100 ML 100 ML IV ONE (12:38)
[2016-11-15] MEDS ORDERED: SUGAMMADEX SODIUM 200 MG/2 ML VIAL IV PUSH ONE ×2 (12:39)
[2016-11-15] MEDS ORDERED: ARTIFICIAL TEARS OPTH OINT 3.5 APPLIC/3.5 GM TUBO ONE (12:39)
[2016-11-15] MEDS ORDERED: HYDROmorphone HCL PF 2 MG/ML VIAL ONE (12:39)
[2016-11-15] MEDS ORDERED: FAMOTIDINE 20 MG/2 ML VIAL ONE (12:39)
[2016-11-15] MEDS ORDERED: diphenhydrAMINE HCL 50 MG/ML VIAL ONE (12:39)
[2016-11-15] MEDS ORDERED: METHYLENE BLUE 10 MG/ML VIAL OTHER ONE (15:03)
[2016-11-15] MEDS ORDERED: LIDOCAINE 2%/EPINEPHrine PF 1:200,000 20ML SDV INFIL ONE (15:04)
[2016-11-15] MEDS ORDERED: SODIUM CHLORIDE 0.9% FLUSH 10 ML FLUSH IV FLUSH PRN (16:45)
[2016-11-15] MEDS ORDERED: oxyCODONE/ACETAMINOPHEN 5 MG/325 MG TAB PO PRN ×2 (16:45)
[2016-11-15] MEDS ORDERED: ONDANSETRON HCL 4 MG/2 ML VIAL IVP PRN (16:45)
[2016-11-15] MEDS ORDERED: LORazepam 0.5 MG TAB PO PRN (16:45)
[2016-11-15] MEDS ORDERED: NALOXONE HCL 4 MG/10 ML MDV ONE (16:46)
[2016-11-15] MEDS: KETOROLAC TROMETHAMINE 30 MG/ML (IVP) VIAL IVP SCH (17:00)
[2016-11-15] MEDS: D5-1/2 NS + KCL 20 MEQ INJ 1,000 ML IV SCH (17:24)
[2016-11-15 18:40] VITALS: BP 123/78; PULSE 87; RESP 16; TEMP 97.8; O2SAT 96
[2016-11-15] MEDS ORDERED: DO NOT ADM ANY ANTICOAGULANT DRUGS PRN (19:30)
[2016-11-15 20:00] VITALS: BP 134/68; PULSE 80; RESP 18; TEMP 97.7; O2SAT 95
[2016-11-15] MEDS ORDERED: SODIUM CHLORIDE 0.9% FLUSH 10 ML FLUSH IV FLUSH SCH (21:00)
[2016-11-16] VITALS: BP 122/62; PULSE 88; RESP 20; TEMP 98.2; O2SAT 95
[2016-11-16] MEDS: KETOROLAC TROMETHAMINE 30 MG/ML (IVP) VIAL IVP SCH ×2 (00:37→05:53)
[2016-11-16] MEDS: D5-1/2 NS + KCL 20 MEQ INJ 1,000 ML IV SCH (00:39)
[2016-11-16 04:00] VITALS: BP 105/60; PULSE 55; RESP 18; TEMP 97.1; O2SAT 95
[2016-11-16] MEDS ORDERED: SULF1TAB23 PO (06:42)
[2016-11-16] MEDS ORDERED: OXYC1TAB63 PO (06:43)
[2016-11-16 07:25] LABS: AUTOMATED NEUTROPHIL # 12.3 TH/MM3 (1.8-7.7); BASOPHIL % 0.1 % (0.0-2.0); EOSINOPHIL % 0.2 % (0.0-4.0); HEMATOCRIT 35.1 % (35.0-46.0); HEMO FLAGS DIFF FINAL; LYMPH % 12.2 % (9.0-44.0); LYMPHOCYTE # 1.8 TH/MM3 (1.0-4.8); MEAN CELL VOLUME 90.4 FL (80.0-100.0); MEAN CORPUSCULAR HEMOGLOBIN 29.5 PG (27.0-34.0); MEAN CORPUSCULAR HGB CONC 32.6 % (32.0-36.0); MONO % 6.1 % (0.0-8.0); NEUT % 81.4 % (16.0-70.0); PLATELET COUNT 281 TH/MM3 (150-450); RED BLOOD COUNT 3.88 MIL/MM3 (4.00-5.30); RED CELL DISTRIBUTION WIDTH 13.3 % (11.6-17.2); WHITE BLOOD COUNT 15.1 TH/MM3 (4.0-11.0)
[2016-11-16 07:48] LABS: BICARBONATE 26.2 MEQ/L (21.0-32.0); POTASSIUM 3.9 MEQ/L (3.5-5.1)
[2016-11-16 08:00] VITALS: BP 120/84; PULSE 78; RESP 16; TEMP 96.8; O2SAT 97
[2016-11-16] MEDS ORDERED: SULFAMETHOXAZOLE-TRIMETHOPRIM DS 800-160 MG TAB PO SCH (09:00)
[2016-11-16] MEDS ORDERED: MESALAMINE PO SCH (09:00)
[2016-11-16 09:20] VITALS: O2SAT 94
--- NOTE | 2016-11-16 14:25 | MD ---
cc: HELENA SPENCE MD, KELLY L. MD ADMISSION DATE: 11/15/2016 DISCHARGE DATE: 11/16/2016 PROCEDURE 11/15/2016 robotic-assisted laparoscopic hysterectomy bilateral salpingo-oophorectomy. DIAGNOSIS Cervical carcinoma in situ. Pelvic adhesions. HOSPITAL COURSE She did well in the early postop. Hemodynamically stable, afebrile, adequate pain control, tolerating oral intake. OBJECTIVE In's and out's 2590 over 2500. LABORATORY FINDINGS: Labs pending at the time of this dictation. VITAL SIGNS: Vitals afebrile, pulse 55-89, respirations 16-20, blood pressure 105-134 over 68-73, O2 saturations greater than equal to 95% somnolent. PHYSICAL EXAMINATION IN GENERAL: Somnolent but no oriented x3. LUNGS: Clear except for mild basilar rales. CARDIOVASCULAR SYSTEM: Regular rate rhythm. ABDOMEN: Incisions clean and dry. Coombs catheter indwelling. GYNECOLOGY: No bleeding. EXTREMITIES: Nontender. ASSESSMENT Postop day #1 doing well in early postop. FINDINGS AT SURGERY Steps taken. Preliminary pathology reviewed. Questions answered. Overview regarding dense adhesions of the bladder to the lower uterine segment and cervix. The bladder wall is intact, but some oversewing was done of the surrounding peritoneum and adjacent to adipose tissue to support the bladder and for this reason to promote adequate complete healing indwelling Coombs catheter is recommended. An overview regarding care of the Coombs and the importance of taking once daily profound prophylactic antibiotic are discussed and reviewed and emphasized that she fill that prescription and take the medication will see her back in our office. She is to call us in 1 week so that we can remove reassess and removed that Coombs catheter. PLAN 1. Therefore anticipate discharge to home exchanged a Coombs to leg bag for and to teach self-care prior to discharge. 2. Daily Septra antibiotic while indwelling Coombs. Prescription for Percocet for pain. 3. She is to resume her other prior medications. 4. Activities and restrictions are discussed and reviewed. Questions are answered. She expressed good understanding. She is to contact our office to ensure she has followup with 1 week and our office number is made available and she is to contact us at any time should she have any questions or problems. MD Yovanny Powers /6:45 AM /2:15 PM
[2016-11-19] MEDS ORDERED: GABA300C5 PO (21:38)
--- NOTE | 2016-11-20 10:10 | MP ---
cc: HELENA SPENCE MD, KELLY L. MD DATE OF SURGERY 11/15/2016 PREOPERATIVE DIAGNOSIS Cervical carcinoma in situ. POSTOPERATIVE DIAGNOSIS 1. Cervical carcinoma in situ. 2. Pelvic adhesions. PROCEDURE Robotic-assisted laparoscopic hysterectomy, bilateral salpingo-oophorectomy, lysis of the perivesical (bladder) adhesions. SURGEON Anna Callahan MD MOTTLE LAY UP OPERATOR [place] administrative personal assistant ANESTHESIA General endotracheal anesthesia ESTIMATED BLOOD LOSS 200 cc IV FLUIDS 2000 cc. URINE OUTPUT 100 cc HISTORY This is a 41-year-old female with recurrent high-grade cervical dysplasia who had been counseled regarding options and was in favor of definitive hysterectomy. Furthermore, she reports pelvic pain and painful periods with concern about malignancy. Also reports a family history of early menopause. She is already having some hot flashes. She understands the reproductive and menopausal ramifications of hysterectomy and bilateral salpingo-oophorectomy. She is absolutely certain that she wants her tubes and ovaries removed. She understands that this will shift her to menopause. 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 This was discussed in our office and she is seen again in the preop holding area where she is certain with this decision. FINDINGS The uterine cavity is sounded to approximately 8 cm. She had healed well from previous conization with minimal scar tissue at the endocervical canal. The uterus was grossly normal. Tubes and ovaries were grossly normal. There were very dense adhesions between the bladder and the uterus in the lower uterine segment thought probably resulting from inflammation from her prior cone biopsies. In the peritoneal cavity, the anatomy was otherwise normal. The liver and diaphragm edges were smooth. There were no peritoneal implants. No adenopathy. No other detectable abnormality. No evidence of malignancy. PROCEDURE She was taken to the operating room, placed in the dorsolithotomy position after general endotracheal anesthesia was administered. A time-out was undertaken. She was identified by sight recognition and hospital ID bracelet and the proposed procedure was reviewed and confirmed. She was carefully positioned in padded Miki stirrups. Her arms were padded and secured to the sides. She was further secured with eggcrate padding and tape in a cross chest over the shoulder fashion. All sites were noted be properly aligned with no malalignments or pressure points. She was prepped and draped in a sterile fashion, placed in high lithotomy position, cervix was grasped. Scar tissue was broken up with a lacrimal probe. The cervix was dilated, uterine cavity sounded and a standard V-Care manipulator was inserted and secured usual fashion. Coombs catheter placed in the bladder. She was returned to low lithotomy position. A change of sterile gloves was undertaken. We confirmed that she had an oral gastric tube and the stomach on suction and with manual elevation of the abdominal wall and direct laparoscopic visualization, a 5 mm cannula was introduced into the left upper quadrant. Atraumatic entry was confirmed. Carbon dioxide gas was insufflated. A 12 mm cannula placed in the midline above the umbilicus. An 8 mm cannula was placed in the right upper quadrant and left lateral quadrant and the original 5 was changed for a 8-mm cannula. She was placed in steep Trendelenburg position. The small bowel folded back on its mesenteric root. Three Ray-Wendie sponges were placed around the root of the small bowel mesentery. The robotic system was brought into the operative field and attached in the usual fashion. Monopolar scissors, fenestrated bipolar forceps and progressed manipulators were placed in arms #1, 2 and 3 respectively and I took my place at the surgeon's console. The right round ligament isolated, cauterized and transected. The anterior and posterior leafs of the broad ligament were opened. The right ureter was identified. The right infundibulopelvic ligament was isolated. The intervening peritoneum was opened. The infundibulopelvic ligament was isolated to the level of the pelvic brim where it was cauterized and transected. The posterior peritoneum opened along the right side of the uterus and cervix and the right vesicouterine peritoneum was dissected off the lower uterine segment which required much time and meticulous dissection as this was densely adherent and significant scar tissue encountered. The right uterine vessels were skeletonized, cauterized and transected as were the cardinal, paracervical, and uterosacral ligaments. Attention was directed toward the left side where similarly the left round ligament was isolated, cauterized and transected. The anterior and posterior leafs of the broad ligament were opened. The left ureter was identified. The left infundibulopelvic ligament was isolated. The infundibulopelvic ligament was isolated to the level of the pelvic brim where it was cauterized and transected. The posterior peritoneum opened along the left side of the uterus and cervix and the left vesicouterine peritoneum was meticulously dissected off the lower uterine segment and cervix overcoming scar tissue and isolating the plane until the bladder could be dissected down below the level of the cervix. The left uterine vessels were skeletonized, cauterized and transected as were the cardinal, paracervical, and uterosacral ligaments. Circumferential colpotomy was performed the cervix from the upper vagina. The specimen was withdrawn transvaginally which included uterus, cervix, tubes and ovaries and a Pneumooccluder balloon was placed in the vagina to maintain pneumoperitoneum. Instruments one and three exchanged for needle drivers as a 0 Vicryl suture was introduced. The vaginal cuff was closed starting at the left corner with full-thickness closure incorporating the posterior peritoneum and edge of the uterosacral ligament, tied via instrument tie. The closure was held on counter traction as a running full-thickness continuous closure was carried across the vaginal apex to the contralateral corner where it was similarly fixed, secured and tied. The needle was cut and removed. To check the integrity of the bladder, the bladder was filled with saline dyed with methylene blue. There was a good margin between the bladder edge of the vaginal cuff suture line. Good peristalsis of ureters. There was no extravasation of dye. No disruption to the integrity of the bladder, however, the overlying peritoneum and adipose tissue had been thinned out during the dissection of scar tissue. This was noted and the bladder was drained. 3-0 Vicryl suture was introduced. The instruments had been exchanged for needle drivers and the overlying peritoneum and adipose tissue were reinforced with a running continuous 3-0 Vicryl closure in two areas to help reinforce the overlying tissue to further support bladder healing and recovery. The needle was cut and removed. The pelvis was thoroughly irrigated. Small bleeders rendered hemostatic with bipolar cautery. Hemostatic Trisha was placed in the pelvis. It was felt that all reasonable surgical objectives had been completed. Accordingly, the robotic instruments were removed. The robotic system was disengaged from the operative field. I reentered the bedside under sterile condition, closed a 12 mm fascial defect using needle pass apparatus 0 Vicryl suture under laparoscopic visualization. These sutures were tied securely which rendered the fascia completely airtight and hemostatic. It should be noted that each of the three Ray-Wendie sponges that had been placed in the peritoneal cavity were withdrawn through the 12-mm cannula prior to closure. Each of the Ray-Wendie's were inspected, noted to be removed in their entirety. There were no remaining foreign objects in the peritoneal cavity and preliminary counts were correct. The remaining cannulas were withdrawn. Carbon dioxide gas was removed from the peritoneal cavity. 3-0 Vicryl subcutaneous, 3-0 Vicryl subcuticular and Steri-Strips were used to close these incisions. She was returned to dorsal lithotomy position. Exam confirmed the vaginal cuff to be well supported and hemostatic. There were no vaginal lacerations. No remaining foreign objects in the vagina. Final counts were correct. She was returned to dorsal supine position and was pending reversal of anesthesia when I left the operating room to precede her to the Post Anesthesia Care Unit. MD MARGARET Powers/ZANDRA /7:28 AM /9:51 AM
== END 2016-11-16 11:16 | disposition home or self-care (01) ==
LOC: HSDC 07:42 → HSDI 16:39 → N07B 18:16
PROVIDERS: ADMIT Obstetrics & Gynecology Gynecologic Oncology; ATTEND Obstetrics & Gynecology Gynecologic Oncology
DX: D06.9 Carcinoma in situ of cervix, unspecified (principal); N73.6 Female pelvic peritoneal adhesions (postinfective); N80.0 Endometriosis of uterus; N95.1 Menopausal and female climacteric states; Z79.01 Long term (current) use of anticoagulants
CPT/HCPCS: 00840; 58552; 80048; 85025; 86850; 86900; 86901; 88309; 94150; 96361; 96374; 96376; G0378; J0131; J0690; J1170; J1200; J1644; J1885; J3480; J7120; 88307; J1100; J2250; J2310; J2405; J3010

== ENCOUNTER 2017-02-10 21:36 | Emergency (ER) | payer MEDICAID ==
[~2017-02-10] VITALS: Ht 165.1 cm; Wt 90.0 kg
[~2017-02-10 21:36] MED LIST changes: +BACT800T5 PO; +GABA300C5 PO; +OXYC1TAB63 PO
[2017-02-10 21:37] VITALS: BP 129/81; PULSE 101; RESP 16; TEMP 99.1; O2SAT 96
[2017-02-10 22:05] VITALS: BP 119/56; PULSE 94; RESP 16; O2SAT 94
[2017-02-10] MEDS ORDERED: KETOROLAC TROMETHAMINE 30 MG/ML (IVP) VIAL IV PUSH ONE (22:15)
[2017-02-10] MEDS ORDERED: SODIUM CHLORIDE 0.9% FLUSH 10 ML FLUSH IV FLUSH PRN (22:15)
--- NOTE | 2017-02-10 22:37 | PD ---
HPI Chief Complaint: Abdominal Pain Time Seen by Provider: 21:59 Travel History International Travel<30 days: No Contact w/Intl Traveler<30days: No Traveled to known affect area: No History of Present Illness HPI 42-year-old female complains of pain in the right upper quadrant. She reports a history of liver lesions. Biopsy was performed revealing fatty tissue according to the patient. She reports some nausea. She reports decreased appetite. She denies fever. No vomiting or diarrhea. Pain severity moderate. PFSH Past Medical History Asthma: Yes Anxiety: Yes Depression: Yes Cancer: Yes (cervical) Cardiovascular Problems: No High Cholesterol: Yes Diabetes: No Diminished Hearing: No Endocrine: No Gastrointestinal Disorders: Yes (ulcer colitis, CROHNS) GERD: Yes Genitourinary: No Hepatitis: No Hiatal Hernia: No Hypertension: No Immune Disorder: No Musculoskeletal: No Neurologic: No Psychiatric: Yes Reproductive: Yes Respiratory: Yes Thyroid Disease: No ?: Not Menopausal: No Tubal Ligation: Yes Past Surgical History Abdominal Surgery: Yes (liver bx) AICD: No Body Medical Devices: N/A Cardiac Surgery: No Cholecystectomy: Yes Ear Surgery: No Endocrine Surgery: No Eye Surgery: No Genitourinary Surgery: No Gynecologic Surgery: Yes (cervical bx) Hysterectomy: Yes Joint Replacement: No Neurologic Surgery: No Oral Surgery: Yes (FULL UPPER DENTURES) Pacemaker: No Thoracic Surgery: No Tonsillectomy: Yes Other Surgery: Yes Social History Alcohol Use: No Tobacco Use: Yes (02/26 ppd) Substance Use: No Allergies-Medications (Allergen,Severity, Reaction): Coded Allergies: lactose (Verified Allergy, Severe, intolerant, 02/10/17) adhesive (Verified Allergy, Intermediate, RASH, 02/10/17) almond (Verified Allergy, Intermediate, sneeze, 02/10/17) latex (Verified Allergy, Mild, Itching, 02/10/17) Reported Meds & Prescriptions Reported Meds & Active Scripts Active Bactrim DS (Sulfamethoxazole-Trimethoprim) 800-160 Mg Tab 1 Tab PO BID Gabapentin 300 Mg Cap 300 Mg PO HS Oxycodone-Acetaminophen 5-325 mg Tab 1 Tab PO Q4H PRN Reported Apriso (Mesalamine) 0.375 Gm Caper 4 Cap PO DAILY Review of Systems Except as stated in HPI: all other systems reviewed are Neg General / Constitutional: No: Fever Gastrointestinal: Positive: Abdominal Pain Physical Exam Narrative GENERAL: 42-year-old female pleasant mild distress SKIN: Focused skin assessment warm/dry. HEAD: Atraumatic. Normocephalic. EYES: Pupils equal and round. No scleral icterus. No injection or drainage. ENT: No nasal bleeding or discharge. Mucous membranes pink and moist. NECK: Trachea midline. No JVD. CARDIOVASCULAR: Regular rate and rhythm. No murmur appreciated. RESPIRATORY: No accessory muscle use. Clear to auscultation. Breath sounds equal bilaterally. GASTROINTESTINAL: Trace TTP RUQ. Soft. MUSCULOSKELETAL: No obvious deformities. No clubbing. No cyanosis. No edema. NEUROLOGICAL: Awake and alert. No obvious cranial nerve deficits. Motor grossly within normal limits. Normal speech. PSYCHIATRIC: Appropriate mood and affect; insight and judgment normal. Data Data Last Documented VS Vital Signs Date Time Temp Pulse Resp B/P (MAP) Pulse Ox O2 Delivery O2 Flow Rate FiO2 02/10/17 23:24 02/10/17 22:05 94 16 94 Room Air 02/10/17 21:37 99.1 VS reviewed Orders Orders Complete Blood Count With Diff (02/10/17 22:04) Comprehensive Metabolic Panel (02/10/17 22:04) Iv Access Insert/Monitor (02/10/17 22:04) Ecg Monitoring (02/10/17 22:04) Oximetry (02/10/17 22:04) Sodium Chloride 0.9% Flush (Ns Flush) (02/10/17 22:15) Us Abdomen Liver (02/10/17 ) Ketorolac Inj (Toradol Inj) (02/10/17 22:15) Ed Discharge Order (02/10/17 23:15) Labs Laboratory Tests Test 02/10/17 22:00 White Blood Count 15.6 TH/MM3 Red Blood Count 4.63 MIL/MM3 Hemoglobin 13.8 GM/DL Hematocrit 40.8 % Mean Corpuscular Volume 88.1 FL Mean Corpuscular Hemoglobin 29.8 PG Mean Corpuscular Hemoglobin Concent 33.8 % Red Cell Distribution Width 14.3 % Platelet Count 344 TH/MM3 Mean Platelet Volume 7.8 FL Neutrophils (%) (Auto) 62.9 % Lymphocytes (%) (Auto) 27.9 % Monocytes (%) (Auto) 6.3 % Eosinophils (%) (Auto) 2.6 % Basophils (%) (Auto) 0.3 % Neutrophils # (Auto) 9.8 TH/MM3 Lymphocytes # (Auto) 4.4 TH/MM3 Monocytes # (Auto) 1.0 TH/MM3 Eosinophils # (Auto) 0.4 TH/MM3 Basophils # (Auto) 0.0 TH/MM3 CBC Comment DIFF FINAL Differential Comment Blood Urea Nitrogen 16 MG/DL Creatinine 0.89 MG/DL Random Glucose 111 MG/DL Total Protein 7.7 GM/DL Albumin 3.6 GM/DL Calcium Level 10.0 MG/DL Alkaline Phosphatase 43 U/L Aspartate Amino Transf (AST/SGOT) 20 U/L Alanine Aminotransferase (ALT/SGPT) 41 U/L Total Bilirubin 0.2 MG/DL Sodium Level 140 MEQ/L Potassium Level 3.6 MEQ/L Chloride Level 101 MEQ/L Carbon Dioxide Level 32.8 MEQ/L Anion Gap 6 MEQ/L Estimat Glomerular Filtration Rate 70 ML/MIN MDM Medical Decision Making Medical Screen Exam Complete: Yes Emergency Medical Condition: Yes Medical Record Reviewed: Yes Differential Diagnosis Constipation, Gastritis, Acute Cholecystitis, Biliary Colic, Pancreatitis, GONZALEZ , Hepatitis, Bowel Obstruction, Cystitis, Mesenteric Ischemia, AAA, Appendicitis , Renal Stone/Hydronephrosis, GERD, perforated viscous Narrative Course CBC & BMP Diagram 02/10/17 22:00 Total Protein 7.7, Albumin 3.6, Calcium Level 10.0, Alkaline Phosphatase 43 L, Aspartate Amino Transf (AST/SGOT) 20, Alanine Aminotransferase (ALT/SGPT) 41, Total Bilirubin 0.2 Last Impressions Liver Ultrasound 02/10/17 0000 Signed Impressions: Service Date/Time: Friday, February 10, 2017 22:16 - CONCLUSION: Hepatic steatosis. Lawrence Phillip MD Patient has hepatic steatosis. Patient reassured. She is ready for discharge. diet lifestyle modification discussed Diagnosis Primary Impression: Abdominal pain Qualified Codes: R10.9 - Unspecified abdominal pain Additional Impression: Hepatic steatosis Referrals: Primary Care Physician 2 days Med/Other Pt SpecificInfo: No Change to Meds Disposition: 01 DISCHARGE HOME Condition: Stable Akhil Bae MD Feb 10, 2017 22:37
[2017-02-10 22:40] LABS: AUTOMATED NEUTROPHIL # 9.8 TH/MM3 (1.8-7.7); BASOPHIL % 0.3 % (0.0-2.0); EOSINOPHIL # 0.4 TH/MM3 (0-0.4); EOSINOPHIL % 2.6 % (0.0-4.0); HEMATOCRIT 40.8 % (35.0-46.0); HEMOGLOBIN 13.8 GM/DL (11.6-15.3); LYMPH % 27.9 % (9.0-44.0); LYMPHOCYTE # 4.4 TH/MM3 (1.0-4.8); MEAN CELL VOLUME 88.1 FL (80.0-100.0); MEAN CORPUSCULAR HEMOGLOBIN 29.8 PG (27.0-34.0); MEAN CORPUSCULAR HGB CONC 33.8 % (32.0-36.0); MEAN PLATELET VOLUME 7.8 FL (7.0-11.0); MONO % 6.3 % (0.0-8.0); NEUT % 62.9 % (16.0-70.0); PLATELET COUNT 344 TH/MM3 (150-450); RED BLOOD COUNT 4.63 MIL/MM3 (4.00-5.30); RED CELL DISTRIBUTION WIDTH 14.3 % (11.6-17.2); WHITE BLOOD COUNT 15.6 TH/MM3 (4.0-11.0)
--- NOTE | 2017-02-10 22:45 | RADRPT ---
EXAM DATE/TIME: 02/10/2017 22:16 [facility] COMPARISON: CT ABDOMEN & PELVIS W CONTRAST, November 01, 2016, 1:31. INDICATIONS : Elevated lab values. MEDICAL HISTORY : Hypercholesterolemia. Gastroesophageal reflux disease. Glasses. Asthma. Depression. Anxiety. Cervic al cancer. SURGICAL HISTORY : Tonsillectomy. Cholecystectomy. Tubal ligation. Hysterectomy. ENCOUNTER: Initial ACUITY: 1 week PAIN SCORE: 3/10 LOCATION: Bilateral upper quadrant MEASUREMENTS: LIVER: 19.0 cm length COMMON DUCT: 7 mm RIGHT KIDNEY: 11.4 x 3.9 x 4.1 cm SPLEEN: 13.3 cm length FINDINGS: LIVER: The liver is echogenic. Focal hepatic masses are not seen. COMMON DUCT: No intraluminal mass or stone visualized. GALLBLADDER: The patient is status post cholecystectomy. PANCREAS: The visualized portions are within normal limits. RIGHT KIDNEY: No hydronephrosis, stone or mass. SPLEEN: The spleen is mildly enlarged measuring 13.3 cm in length. No focal splenic lesion is seen. CONCLUSION: Hepatic steatosis. Lawrence Phillip MD on February 10, 2017 at 22:41 Board Certified Radiologist. This report was verified electronically.
[2017-02-10 22:58] LABS: ALBUMIN 3.6 GM/DL (3.4-5.0); ALT (GPT) 41 U/L (10-53); AST (GOT) 20 U/L (15-37); BICARBONATE 32.8 MEQ/L (21.0-32.0); BLOOD UREA NITROGEN 16 MG/DL (7-18); CHLORIDE 101 MEQ/L (98-107); CREATININE 0.89 MG/DL (0.50-1.00); GLOMERULAR FILTRATION RATE 70 ML/MIN (>89); GLUCOSE,RANDOM 111 MG/DL (74-106); SODIUM (NA) 140 MEQ/L (136-145)
[2017-02-10 23:00] LABS: ALKALINE PHOSPHATASE 43 U/L (45-117); TOTAL BILIRUBIN ADULT 0.2 MG/DL (0.2-1.0); TOTAL PROTEIN 7.7 GM/DL (6.4-8.2)
[2017-02-10 23:27] VITALS: BP 126/64; PULSE 84; RESP 16; O2SAT 94
[2017-02-20] MEDS ORDERED: DOXY100C PO (06:55)
[2017-02-22] MEDS ORDERED: DOXY100C PO (00:20)
== END 2017-02-10 23:29 | disposition home or self-care (01) ==
LOC: NEPC 21:36
DX: R10.11 Right upper quadrant pain (principal); K76.0 Fatty (change of) liver, not elsewhere classified; J45.909 Unspecified asthma, uncomplicated; F41.9 Anxiety disorder, unspecified; F32.9 Major depressive disorder, single episode, unspecified; E78.00 Pure hypercholesterolemia, unspecified; K50.90 Crohn's disease, unspecified, without complications; K21.9 Gastro-esophageal reflux disease without esophagitis; F17.200 Nicotine dependence, unspecified, uncomplicated
CPT/HCPCS: 76705; 80053; 85025; 96374; 99285; J1885

== ENCOUNTER 2017-04-11 14:17 | Emergency (ER) | payer MEDICAID ==
[~2017-04-11] VITALS: Ht 165.1 cm; Wt 85.0 kg
[~2017-04-11 14:17] MED LIST changes: -BACT800T5 PO; +DOXY100C PO
[2017-04-11 14:19] VITALS: BP 135/95; PULSE 104; RESP 16; TEMP 98.2; O2SAT 98
[2017-04-11] MEDS ORDERED: SODIUM CHLORIDE 0.9% FLUSH 10 ML FLUSH IVF PRN (16:45)
[2017-04-11] MEDS ORDERED: PROCHLORPERAZINE INJ 10 MG/2 ML VIAL IV PUSH ONE (17:00)
--- NOTE | 2017-04-11 17:28 | PD ---
HPI Chief Complaint: Headache Time Seen by Provider: 16:27 Travel History International Travel<30 days: No Contact w/Intl Traveler<30days: No Traveled to known affect area: No History of Present Illness HPI 42-year-old female presents to the emergency Department with complaint of head pressure, dizziness, feeling lethargic that has been on and off times one month. Reports pain behind her right eye and pressure to her entire head. Has history of chronic migraines. This is not the same. Reports "slight nausea" without vomiting. At first that she cannot rate her pain because it's a pressure. Rates the pressure 5/10. Reports blurry vision. Denies photophobia or phonophobia. Denies fever. Denies recent illness to include nasal congestion, sore throat, ear pain, cough. Denies confusion, disorientation, change in mentation, focal deficits or weakness, slurred speech. Since her pain started as a sharp pain in the right posterior base of head a month ago. Says her pain is worse with movement. Better with lying down. Has tried taking aspirin and Excedrin for symptom management. Primary care provider is Dr. Haynes. Allergies to adhesive, Alman, lactose, latex. History of chronic migraines, arthritis, and Crohn's disease. Has no medical complaints. No other modifying factors or associated signs and symptoms. PFSH Past Medical History Asthma: Yes Anxiety: Yes Depression: Yes Cancer: Yes (cervical) Cardiovascular Problems: No High Cholesterol: Yes Diabetes: No Diminished Hearing: No Endocrine: No Gastrointestinal Disorders: Yes (ulcer colitis, CROHNS) GERD: Yes Genitourinary: No Hepatitis: No Hiatal Hernia: No Hypertension: No Immune Disorder: No Musculoskeletal: No Neurologic: No Psychiatric: Yes Reproductive: Yes Respiratory: Yes Thyroid Disease: No ?: Not Menopausal: No Tubal Ligation: Yes Past Surgical History Abdominal Surgery: Yes (liver bx) AICD: No Body Medical Devices: N/A Cardiac Surgery: No Cholecystectomy: Yes Ear Surgery: No Endocrine Surgery: No Eye Surgery: No Genitourinary Surgery: No Gynecologic Surgery: Yes (cervical bx) Hysterectomy: Yes Joint Replacement: No Neurologic Surgery: No Oral Surgery: Yes (FULL UPPER DENTURES) Pacemaker: No Thoracic Surgery: No Tonsillectomy: Yes Other Surgery: Yes Social History Alcohol Use: No Tobacco Use: Yes (1/2 ppd) Substance Use: No Allergies-Medications (Allergen,Severity, Reaction): Coded Allergies: lactose (Verified Allergy, Severe, intolerant, 04/11/17) adhesive (Verified Allergy, Intermediate, RASH, 04/11/17) almond (Verified Allergy, Intermediate, sneeze, 04/11/17) latex (Verified Allergy, Mild, Itching, 04/11/17) Reported Meds & Prescriptions Reported Meds & Active Scripts Active No Active Prescriptions or Reported Medications Review of Systems Except as stated in HPI: all other systems reviewed are Neg Physical Exam Narrative GENERAL: Well-nourished, well-developed patient, in no acute distress; afebrile , nontoxic-appearing SKIN: Warm and dry. HEAD: Atraumatic. Normocephalic. No facial droop noted. Tongue midline. Shoulder shrug equal. Finger to nose test normal. EYES: Pupils equal and round at 3 mm with brisk reaction. No scleral icterus. No injection or drainage. PERRLA. EOMI. ENT: Mucosa pink and moist. No erythema or exudates. No uvular edema. No uvular , palatal, or tonsillar deviation. Airway patent. EARS: Bilateral pinnae and external canals appear within normal limits. Bilateral tympanic membranes without erythema, dullness or perforation. NECK: Trachea midline. No lymphadenopathy. CARDIOVASCULAR: Regular rate and rhythm. No murmur appreciated. RESPIRATORY: No accessory muscle use. Clear to auscultation. Breath sounds equal bilaterally. GASTROINTESTINAL: Abdomen soft, non-tender, nondistended. Hepatic and splenic margins not palpable. Bowel sounds are active 4 quadrants. MUSCULOSKELETAL: No obvious deformities. No clubbing. No cyanosis. No edema. NEUROLOGICAL: Awake and alert. Oriented 4. No obvious cranial nerve deficits. Motor grossly within normal limits. Normal speech. No ataxia. No mid -line drift. No upper or lower extremity drift. Moves all extremities. 5/5 strength to all extremities. PSYCHIATRIC: Appropriate mood and affect; insight and judgment normal. Data Data Last Documented VS Vital Signs Date Time Temp Pulse Resp B/P (MAP) Pulse Ox O2 Delivery O2 Flow Rate FiO2 04/11/17 14:19 98.2 104 16 135/95 (108) 98 Orders Orders Electrocardiogram (04/11/17 16:44) Basic Metabolic Panel (Bmp) (04/11/17 16:44) Ed Urine Pregnancytest Poc (04/11/17 16:44) Complete Blood Count With Diff (04/11/17 16:44) Ecg Monitoring (04/11/17 16:44) Iv Access Insert/Monitor (04/11/17 16:44) Oximetry (04/11/17 16:44) Sodium Chloride 0.9% Flush (Ns Flush) (04/11/17 16:45) Ct Brain W/O Iv Contrast(Rout) (04/11/17 ) Orthostatic Vital Signs (04/11/17 16:49) Prochlorperazine Inj (Compazine Inj) (04/11/17 17:00) Ketorolac Inj (Toradol Inj) (04/11/17 18:30) Ed Discharge Order (04/11/17 18:29) Labs Laboratory Tests Test 04/11/17 17:20 White Blood Count 13.0 TH/MM3 Red Blood Count 4.94 MIL/MM3 Hemoglobin 15.3 GM/DL Hematocrit 43.9 % Mean Corpuscular Volume 89.0 FL Mean Corpuscular Hemoglobin 30.9 PG Mean Corpuscular Hemoglobin Concent 34.8 % Red Cell Distribution Width 13.5 % Platelet Count 341 TH/MM3 Mean Platelet Volume 8.0 FL Neutrophils (%) (Auto) 60.9 % Lymphocytes (%) (Auto) 29.1 % Monocytes (%) (Auto) 6.8 % Eosinophils (%) (Auto) 2.6 % Basophils (%) (Auto) 0.6 % Neutrophils # (Auto) 7.9 TH/MM3 Lymphocytes # (Auto) 3.8 TH/MM3 Monocytes # (Auto) 0.9 TH/MM3 Eosinophils # (Auto) 0.3 TH/MM3 Basophils # (Auto) 0.1 TH/MM3 CBC Comment DIFF FINAL Differential Comment Blood Urea Nitrogen 6 MG/DL Creatinine 0.82 MG/DL Random Glucose 76 MG/DL Calcium Level 9.2 MG/DL Sodium Level 138 MEQ/L Potassium Level 4.0 MEQ/L Chloride Level 104 MEQ/L Carbon Dioxide Level 27.0 MEQ/L Anion Gap 7 MEQ/L Estimat Glomerular Filtration Rate 77 ML/MIN MDM Medical Decision Making Medical Screen Exam Complete: Yes Emergency Medical Condition: Yes Medical Record Reviewed: Yes Differential Diagnosis Headache, dizziness, electrolyte imbalance, arrhythmia Narrative Course 42-year-old female with head pressure/headache. Also complaining of dizziness. Neuro exam is unremarkable. Patient has history of chronic migraines, but states this is different. CT head, CBC, BMP, EKG, IV, normal saline bolus, Compazine, orthostatic vital signs ordered. 1730: EKG with normal sinus rhythm; no ST elevation or depression; reviewed by Dr. Cruz. 180: WBC 13.0, otherwise unremarkable. CT head concludes: No acute disease. 183: CT head unremarkable. Patient provided a copy of the CT head report. BMP unremarkable. Toradol ordered. 183: On reexamination the patient denies headache at this time. Patient instructed to follow up with manager operations, neurologist, and primary care provider. Instructed patient to follow up with primary care provider. Patient verbalizes understanding and agreement with treatment plan. Patient is medically cleared and stable for discharge. Discussed reasons to return to the emergency department. Patient agrees with treatment plan. The patients vital signs are stable and the patient is stable for outpatient follow-up and treatment. Patient discharged home, stable and in no acute distress. Diagnosis Primary Impression: Headache Qualified Codes: R51 - Headache Additional Impression: Dizziness Referrals: [facility] Neurologist [employer] [facility] Primary Care Physician Patient Instructions: Acute Headache (ED), Dizziness (ED), General Instructions Additional Instructions: Ibuprofen or Tylenol as directed and as needed to reduce headache [id number] meclizine as directed and as needed for dizziness Get plenty of rest: do not over sleep rest and relax in a dark, quiet room as needed Place an ice pack on the back of her neck to reduce head pain as needed Keep a headache diary of what triggers her headaches and what treatment is most effective Avoid identifiable triggers Avoid smoking, alcohol and caffeine consumption Reduce stress Follow-up with primary care provider within 1-2 days Follow-up with neurology Follow-up with manager operations Return immediately to the emergency department with worsening symptoms Med/Other Pt SpecificInfo: No Change to Meds, No Meds Exist/No RX given Scripts No Active Prescriptions or Reported Meds Disposition: 01 DISCHARGE HOME Condition: Stable Jie Matos Apr 11, 2017 17:28
[2017-04-11 17:57] LABS: AUTOMATED NEUTROPHIL # 7.9 TH/MM3 (1.8-7.7); BASOPHIL # 0.1 TH/MM3 (0-0.2); BASOPHIL % 0.6 % (0.0-2.0); EOSINOPHIL # 0.3 TH/MM3 (0-0.4); EOSINOPHIL % 2.6 % (0.0-4.0); HEMATOCRIT 43.9 % (35.0-46.0); HEMOGLOBIN 15.3 GM/DL (11.6-15.3); LYMPH % 29.1 % (9.0-44.0); LYMPHOCYTE # 3.8 TH/MM3 (1.0-4.8); MEAN CORPUSCULAR HEMOGLOBIN 30.9 PG (27.0-34.0); MEAN CORPUSCULAR HGB CONC 34.8 % (32.0-36.0); MONO % 6.8 % (0.0-8.0); MONOCYTE # 0.9 TH/MM3 (0-0.9); NEUT % 60.9 % (16.0-70.0); PLATELET COUNT 341 TH/MM3 (150-450); RED BLOOD COUNT 4.94 MIL/MM3 (4.00-5.30); RED CELL DISTRIBUTION WIDTH 13.5 % (11.6-17.2)
--- NOTE | 2017-04-11 17:58 | RADRPT ---
EXAM DATE/TIME: 04/11/2017 17:42 [facility] COMPARISON: No previous studies available for comparison. INDICATIONS : Patient complains of headache with dizziness and lethargy. RADIATION DOSE: 56.35 CTDIvol (mGy) MEDICAL HISTORY : cervical cancer SURGICAL HISTORY : Cholecystectomy. Tubal ligation.Hysterectomy. ENCOUNTER: Initial ACUITY: 1 month PAIN SCALE: 0/10 LOCATION: cranial TECHNIQUE: Multiple contiguous axial images were obtained of the head. Using automated exposure control and adj ustment of the mA and/or kV according to patient size, radiation dose was kept as low as reasonably a chievable to obtain optimal diagnostic quality images. DICOM format image data is available electro nically for review and comparison. FINDINGS: CEREBRUM: The ventricles are normal for age. No evidence of midline shift, mass lesion, hemorrhage or acute in farction. No extra-axial fluid collections are seen. POSTERIOR FOSSA: The cerebellum and brainstem are intact. The 4th ventricle is midline. The cerebellopontine angle i s unremarkable. EXTRACRANIAL: The visualized portion of the orbits is intact. SKULL: The calvaria is intact. No evidence of skull fracture. CONCLUSION: No acute disease. Timo Leon MD on April 11, 2017 at 17:55 Board Certified Radiologist. This report was verified electronically.
[2017-04-11 18:10] LABS: CALCIUM 9.2 MG/DL (8.5-10.1); CREATININE 0.82 MG/DL (0.50-1.00)
[2017-04-11] MEDS ORDERED: KETOROLAC TROMETHAMINE 30 MG/ML (IVP) VIAL IV PUSH ONE (18:30)
--- NOTE | 2017-04-13 00:43 | EKG ---
Date Performed: 04/11/2017 Time Performed: 17:22:23 PTAGE: 42 years EKG: Sinus rhythm NORMAL ECG PREVIOUS TRACING : 10/05/2016 16.28 Since the prior tracing, there has been no significant erickson DOCTOR: Trent Andino Interpretating Date/Time 04/13/2017 00:42:27
== END 2017-04-11 18:55 | disposition home or self-care (01) ==
LOC: NEPD 14:17
DX: R51 Headache (principal); R42 Dizziness and giddiness; R53.83 Other fatigue; J45.909 Unspecified asthma, uncomplicated; Z72.0 Tobacco use
CPT/HCPCS: 70450; 80048; 84703; 85025; 93005; 96374; 96375; 99285; J0780; J1885